=== PATIENT | male | born 1930 | race Caucasian/White ===

== ENCOUNTER 2016-10-13 19:36 | Inpatient (IN) | payer OTHER, MEDICARE ==
[2016-10-13 19:36] VITALS: BMI 20.9
[2016-10-13] MEDS ORDERED: Sodium Chloride 0.9% 500 ML IV STA (20:20)
--- NOTE | 2016-10-13 20:30 | ED PDOC ---
Arrival/HPI - General Chief Complaint: Dizziness/Lightheaded Time Seen by Provider: 10/13/16 19:47 Historian: Patient - History of Present Illness Narrative History of Present Illness (Text): 10/13/16 20:23 This 85 yo male with pmh hyperlipidemia, constipation, presents to this ED with daughter c/o diplopia, dizziness, decreased appetite, mild cms, very weak, unsteady gait x [address] Guillen prescribed patient Meclizine last month, which it did not relief symptoms. Daughter denies sob, cp , cough, trauma, recent travel, [place], or abdominal pain. 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[place]) - Psychiatric Hx Substance Use: No - Past Surgical History Past Surgical History: No Previous - Suicidal Assessment Feels Threatened In Home Enviroment: No Family/Social History - Physician Review Nursing Documentation Reviewed: Yes Family/Social History: No Known Family HX Smoking Status: Never Smoked Hx Alcohol Use: No Hx Substance Use: No Hx Substance Use Treatment: No Allergies/Home Meds Allergies/Adverse Reactions: Allergies No Known Allergies Allergy (Verified 06/07/14 14:47) Home Medications: Home Meds Medication Instructions Recorded Confirmed Atorvastatin [Lipitor] 10 mg PO DIN 10/13/16 10/13/16 Meclizine [Antivert] 25 mg PO DAILY 10/13/16 10/13/16 Ustekinumab [Stelara] 0 mg SC PRN PRN 10/13/16 10/13/16 Review of Systems - Review of Systems Constitutional: Fatigue, Weight Change. absent: Fevers, Night Sweats Eyes: Normal ENT: Normal Respiratory: Normal. absent: SOB, Cough, Sputum, Wheezing Cardiovascular: Normal. absent: Chest Pain, Palpitations Gastrointestinal: Constipation. absent: Abdominal Pain, Nausea, Vomiting Genitourinary Male: Normal Musculoskeletal: Normal Skin: Normal Neurological: Dizziness, Other (unsteady gait). absent: Speech Changes, Facial Droop Endocrine: Normal Hemo/Lymphatic: Normal Psychiatric: Normal Physical Exam Vital Signs Temp Pulse Resp BP Pulse Ox 10/13/16 21:21 74 20 151/89 H 98 10/13/16 19:52 98.8 F 92 H 20 130/79 98 Temperature: Afebrile Blood Pressure: Normal Pulse: Regular Respiratory Rate: Normal Appearance: Positive for: Well-Appearing, Non-Toxic, Comfortable Pain Distress: None - Systems Exam Head: Present: Atraumatic, Normocephalic Pupils: Present: PERRL Extroacular Muscles: Present: EOMI Conjunctiva: Present: Normal Ears: Present: Normal, NORMAL TM, Normal Canal. No: Erythema, TM Bulging, Fluid , TM Perf Mouth: Present: Moist Mucous Membranes, Normal Lips, Normal Tounge. No: Drooling Pharnyx: Present: Normal. No: ERYTHEMA, EXUDATE, TONSILS ENLARGED Nose (External): Present: Atraumatic Nose (Internal): Present: Normal Inspection Neck: Present: Normal Range of Motion, Trachea Midline. No: Meningeal Signs Respiratory/Chest: Present: Clear to Auscultation, Good Air Exchange. No: Respiratory Distress, Accessory Muscle Use, Wheezes, Rales, Retracting, Rhonchi , Tachypneic Cardiovascular: Present: Regular Rate and Rhythm, Normal S1, S2. No: Murmurs Abdomen: Present: Normal Bowel Sounds. No: Tenderness, Distention, Peritoneal Signs Back: Present: Normal Inspection. No: CVA Tenderness Upper Extremity: Present: Normal Inspection, Normal ROM, NORMAL PULSES, Neurovascularly Intact, Capillary Refill < 2s. No: Cyanosis, Edema Lower Extremity: Present: Normal Inspection, NORMAL PULSES, Normal ROM, Neurovascularly Intact, Capillary Refill < 2 s. No: Edema, CALF TENDERNESS Neurological: Present: GCS=15, CN II-XII Intact, Speech Normal, Motor Func Grossly Intact, Normal Sensory Function, Normal Cerebellar Funct. No: Gait Normal, Memory Normal Skin: Present: Warm, Dry, Normal Color. No: Rashes Psychiatric: Present: Alert Medical Decision Making ED Course and Treatment: 10/13/16 22:[address] Tsang who is covering for Dr. Guillen, regarding patient c/o generalized weakness, unsteady gait, decreased appetite, CMS. He agrees with plan for admission. 10/13/16 22:18 I spoke with patient and daughter who agreed with plan for admission. 10/13/16 22:28 CXR demonstrates subtle bibasilar atelectasis vs infiltrates. Patient's daughter denies respiratory symptoms. I favor atelectasis. I would order Rocephin till official report of CXR is available. Re-evaluation Time: 21:50 Reassessment Condition: Re-examined, Improving,but remains with symptoms - Lab Interpretations Lab Results: 10/13/16 20:45 10/13/16 20:45 Lab Results 10/13/16 20:50: Urine Color Yellow, Urine Appearance Sl cloudy, Urine pH 6.0, Ur Specific [place] 1.015, Urine Protein Negative, Urine Glucose (UA) Negative, Urine Ketones Negative, Urine Blood Small H, Urine Nitrate Negative, Urine Bilirubin Negative, Urine Urobilinogen 0.2, Ur Leukocyte Esterase Negative, Urine RBC 0 - 2, Urine WBC 0 - 2, Ur Epithelial Cells 0 - 2 10/13/16 20:45: Ammonia < 9 L 10/13/16 20:45: Sodium 139, Potassium 3.8, Chloride 104, Carbon Dioxide 26, Anion Gap 13, BUN 15, Creatinine 1.1, Est GFR ( Amer) > 60, Est GFR (Non- Af Amer) > 60, Random Glucose 99, Calcium 8.7, Phosphorus 3.2, Magnesium 1.9, Total Bilirubin 0.5, AST 30, ALT 26, Alkaline Phosphatase 63, Lactate Dehydrogenase 427, Total Creatine Kinase 50, Troponin I < 0.01, Total Protein 7.7, Albumin 3.8, Globulin 3.9, Albumin/Globulin Ratio 1.0 L 10/13/16 20:45: PT 11.1, INR 1.03, APTT 26.6 10/13/16 20:45: WBC 8.6, RBC 4.15, Hgb 13.2 L, Hct 37.2 L, MCV 89.6, MCH 31.8, MCHC 35.5, RDW 13.1, Plt Count 186, MPV 9.1, Gran % 66.0, Lymph % (Auto) 22.4, [place] % (Auto) 7.5 H, Eos % (Auto) 3.9, Baso % (Auto) 0.2, Gran # 5.69, Lymph # 1.9, [place] # 0.7 H, Eos # 0.3, Baso # 0.02 I have reviewed the lab results: Yes Interpretation: No clinic. lab abnormalty - RAD Interpretation Narrative RAD Interpretations (Text): 10/13/16 21:47 EXAM: CT Head Without Intravenous Contrast CLINICAL HISTORY: FINDINGS: Limitations: No retail area manager view. Brain: Moderate atrophy. No intracranial hemorrhage. No mass. Several scattered foci of decreased attenuation within periventricular/subcortical white matter. No definite edema. Ventricles: No hydrocephalus. Bones/joints: No acute fracture. Soft tissues: Unremarkable. Vasculature: Mild atherosclerotic disease of intracranial arteries. Few foci of air about cavernous sinus, nonspecific but possibly iatrogenic. Sinuses: No acute sinusitis. Mastoid air cells: No mastoid effusion. Orbits: Slight asymmetry in size/shape of RIGHT globe. Clinical correlation is needed. IMPRESSION: 1. Nonspecific white matter changes. Acute infarction may be CT occult within first 24 hours. If a focal deficit persists, consider followup CT or MRI for further evaluation. 2. Incidental/non-acute findings are described above. Dictated and Authenticated by: Shane Denton MD 10/13/2016 9:43 PM Eastern Time ([place] & [place]) 10/13/16 22:27 CHEST X-RAYS: subtle bibasilar atelectasis vs infiltrates Radiology Orders: 10/13/16 20:20 HEAD W/O CONTRAST [CT] Stat 10/13/16 20:21 CHEST PORTABLE [RAD] Stat - Medication Orders Current Medication Orders: Sodium Chloride (Sodium Chloride 0.9%) 1,000 mls @ 75 mls/hr IV .[id number] STA Stop: 10/14/16 11:43 Discontinued Medications Sodium Chloride (Sodium Chloride 0.9%) 500 mls @ 1,000 mls/hr IV .Q30M STA Stop: 10/13/16 20:49 Last Admin: 10/13/16 20:53 Dose: 1,000 mls/hr Ceftriaxone Sodium (Rocephin 1 Gram Ivpb) 1 gm in 100 mls @ 200 mls/hr IVPB STAT STA PRN Reason: Protocol Stop: 10/13/16 22:04 Last Admin: 10/13/16 22:12 Dose: 200 mls/hr Disposition/Present on Arrival - Present on Arrival Any Indicators Present on Arrival: No History of DVT/PE: No History of Uncontrolled Diabetes: No Urinary Catheter: No History of Decub. Ulcer: No History Surgical Site Infection Following: None - Disposition Have Diagnosis and Disposition been Completed?: Yes Diagnosis: Unsteady gait, Failure to thrive, Altered mental status Disposition: HOSPITALIZED Disposition Time: 22:18 Patient Plan: Admission Patient Problems: Current Active Problems Problem Status Onset Unsteady gait Acute Failure to thrive Acute Altered mental status Acute Condition: STABLE
[2016-10-13 20:56] LABS: BASO # 0.02 K/mm3 (0.0-2.0); BASO % 0.2 % (0.0-3.0); EOS # 0.3 (0.0-0.7); EOS % 3.9 % (1.5-5.0); GRAN # 5.69 (1.4-6.5); HEMOGLOBIN 13.2 gm/dL (14.0-18.0); LYMPH # 1.9 (1.2-3.4); LYMPH % 22.4 % (22.0-35.0); MEAN CELL VOLUME 89.6 fL (80.0-105.0); MEAN CORPUSCULAR HEMOGLOBIN 31.8 pg (25.0-35.0); MEAN CORPUSCULAR HGB CONC 35.5 g/dl (31.0-37.0); MEAN PLATELET VOLUME 9.1 fl (7.0-11.0); MONO # 0.7 (0.1-0.6); MONO % 7.5 % (1.0-6.0); PLATELET COUNT 186 10^3/uL (120.0-450.0); RBC 4.15 10^6/uL (3.5-6.1); RED CELL DISTRIBUTION WIDTH 13.1 % (11.5-14.5); WHITE BLOOD COUNT 8.6 10^3/ul (4.5-11.0)
[2016-10-13 21:04] LABS: URINE BILIRUBIN NEGATIVE (NEGATIVE); URINE BLOOD SMALL (NEGATIVE); URINE GLUCOSE (UA) NEGATIVE (NEGATIVE); URINE LEUKOCYTE ESTERASE NEGATIVE Leu/uL (NEGATIVE); URINE NITRATE NEGATIVE (NEGATIVE); URINE PROTEIN NEGATIVE mg/dL (<30 mg/dL); URINE UROBILINOGEN 0.2 E.U./dL (<1 E.U./dL)
[2016-10-13 21:07] LABS: INR 1.03 (0.93-1.08); PARTIAL THROMBOPLASTIN TIME 26.6 Seconds (23.7-30.8); PROTHROMBIN TIME 11.1 Seconds (9.9-11.8)
[2016-10-13 21:07] LABS: URINE APPEARANCE SL CLOUDY (CLEAR); URINE COLOR YELLOW (YELLOW)
[2016-10-13 21:11] LABS: URINE EPITHELIAL CELLS 0 - 2 /hpf (0-5); URINE RBC 0 - 2 /hpf (0-2); URINE WBC 0 - 2 /hpf (0-6)
[2016-10-13 21:18] LABS: ALBUMIN 3.8 g/dL (3.0-4.8); ALT/SGPT 26 U/L (7-56); AST/SGOT 30 U/L (15-59); BLOOD UREA NITROGEN 15 mg/dL (7-21); CALCIUM 8.7 mg/dL (8.4-10.5); GFR AFRICAN-AMERICAN > 60; GFR NON-AFRICAN AMERICAN > 60; MAGNESIUM 1.9 mg/dL (1.7-2.2)
[2016-10-13] MEDS ORDERED: cefTRIAXone 1 gm 1 GM/100 ML BAG IVPB STA (21:35)
[2016-10-13] MEDS ORDERED: Azithromycin 500MG/NS 250ml 500 MG/250 ML BAG IVPB STA (21:35)
[2016-10-13 21:39] LABS: TROPONIN I < 0.01 ng/mL
--- NOTE | 2016-10-13 21:43 | CT ---
EXAM: CT Head Without Intravenous Contrast CLINICAL HISTORY: 85 years old, male; Signs and symptoms; Dizziness; Additional info: Dizziness, diplopia TECHNIQUE: Axial computed tomography images of the head/brain without intravenous contrast. This CT exam was performed using one or more of the following dose reduction techniques: automated exposure control, adjustment of the mA and/or kV according to patient size, and/or use of iterative reconstruction technique. COMPARISON: No relevant prior studies available. FINDINGS: Limitations: No schedule maker view. Brain: Moderate atrophy. No intracranial hemorrhage. No mass. Several scattered foci of decreased attenuation within periventricular/subcortical white matter. No definite edema. Ventricles: No hydrocephalus. Bones/joints: No acute fracture. Soft tissues: Unremarkable. Vasculature: Mild atherosclerotic disease of intracranial arteries. Few foci of air about cavernous sinus, nonspecific but possibly iatrogenic. Sinuses: No acute sinusitis. Mastoid air cells: No mastoid effusion. Orbits: Slight asymmetry in size/shape of RIGHT globe. Clinical correlation is needed. IMPRESSION: 1. Nonspecific white matter changes. Acute infarction may be CT occult within first 24 hours. If a focal deficit persists, consider followup CT or MRI for further evaluation. 2. Incidental/non-acute findings are described above.
[2016-10-13] MEDS ORDERED: Sodium Chloride 0.9% 1,000 ML IV STA (22:24)
--- NOTE | 2016-10-14 08:45 | RAD ---
HISTORY: cough COMPARISON: No prior. FINDINGS: LUNGS: Minimal bibasilar atelectasis. The lungs are otherwise clear PLEURA: No significant pleural effusion identified, no pneumothorax apparent. CARDIOVASCULAR: Normal. OSSEOUS STRUCTURES: No significant abnormalities. VISUALIZED UPPER ABDOMEN: Normal. OTHER FINDINGS: None. IMPRESSION: No active disease.
--- NOTE | 2016-10-14 09:50 | CARD ---
APPROVED REPORT EKG Measurement Heart [id number] <Conclusion> Sinus rhythm with premature atrial complex Left bundle branch block
[2016-10-14] MEDS ORDERED: cefTRIAXone 1 gm 1 GM/100 ML BAG IVPB SCH (10:00)
--- NOTE | 2016-10-14 10:47 | CP.PCM.HP ---
History of Present Illness - History of Present Illness History of Present Illness: 85 y/o w/m w/ hx of dizzy weakness unsteady gait x 4 weeks was put on meclizine on the outpatient and did not help and here w/ worsening sx and for eval Present on Admission - Present on Admission Any Indicators Present on Admission: Yes History of DVT/PE: No History of Uncontrolled Diabetes: No Urinary Catheter: No Decubitus Ulcer Present: No Review of Systems - EENT Eyes: Change in Vision Ears: Disequilibrium, Dizziness - Musculoskeletal Musculoskeletal: Abnormal Gait, Muscle Weakness - Integumentary Additional comments: hx of psoriais - Neurological Neurological: Abnormal Gait, Abnormal Speech, Confusion, Dizziness, Weakness - Psychiatric Psychiatric: Anxiety, Change in Appetite, Confusion Past Patient History - Infectious Disease Hx of Infectious Diseases: None - Tetanus Immunizations Tetanus Immunization: Unknown - Past Social History Smoking Status: Never Smoked - NEUROLOGICAL Hx Vertigo: Yes - HEENT 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[place]) - MUSCULOSKELETAL/RHEUMATOLOGICAL Hx Falls: Yes - PSYCHIATRIC Hx Substance Use: No Meds Allergies/Adverse Reactions: Allergies Allergy/AdvReac Type Severity Reaction Status Date / Time No Known Allergies Allergy Verified 06/07/14 14:47 Physical Exam - Constitutional Appears: No Acute Distress - Head Exam Head Exam: ATRAUMATIC, NORMAL INSPECTION, NORMOCEPHALIC - Eye Exam Eye Exam: EOMI, Normal appearance Pupil Exam: NORMAL ACCOMODATION - ENT Exam ENT Exam: Mucous Membranes Moist Additional comments: tongue midline - Neck Exam Neck exam: Positive for: Normal Inspection - Respiratory Exam Respiratory Exam: Decreased Breath Sounds, Clear to Auscultation Bilateral, NORMAL BREATHING PATTERN - Cardiovascular Exam Cardiovascular Exam: REGULAR RHYTHM - GI/Abdominal Exam GI & Abdominal Exam: Normal Bowel Sounds, Soft - Extremities Exam Extremities exam: Positive for: normal inspection Additional comments: no edema = - Back Exam Back exam: NORMAL INSPECTION - Neurological Exam Neurological exam: Abnormal Gait, Alert, CN II-XII Intact - Psychiatric Exam Psychiatric exam: Flat Affect - Skin Skin Exam: Dry Results - Vital Signs Recent Vital Signs: Last Vital Signs Temp 98.4 F 10/14/16 06:00 Pulse 80 10/14/16 06:00 Resp 19 10/14/16 06:00 BP 160/96 H 10/14/16 06:00 Pulse Ox 99 10/14/16 06:00 - Labs Result Diagrams: 10/13/16 20:45 10/13/16 20:45 Assessment & Plan - Assessment and Plan (Free Text) Assessment: possible acute cva change in mentation weakness unsteady gait htn Plan: tele neuro eval bp meds pt swallow eval mri of brain labs discussed w/ family - Date & Time Date: 10/14/16 Time: 09:00
[2016-10-14 12:23] LABS: HDL CHOLESTEROL 46 mg/dL (29-60)
[2016-10-14 12:34] LABS: LDL CHOLESTEROL 39 mg/dL (0-129)
--- NOTE | 2016-10-14 13:45 | CP.PCM.CON ---
History of Present Illness - History of Present Illness History of Present Illness: NEURO CONSULT NOTE: 10/14/16 CHIEF COMPLAINT: DIZZINESS AND UNSTEADY GAIT. HPI: THIS I S A 85 YEAR OLD MAN WITH HISTORY OF HTN, HLD WHO PRESENTS WITH GRADUALLY INCREASE IN DIZZINESS IN TERMS OF LIGHTHEADEDNESS AND MILD SPINNING SENSATION OF THE ROOM WHEN ABOUT TO AMBULATE AND FEELS UNBALANCED ON HIS FEET WITH HIS GAIT OVER THE PAST FEW WEEKS. NO HEADACHES OR TRUE DOUBLE VISION. NO NYSTAGMUS SEEN ON EXAM. CT HEAD SHOWED NO ACUTE ABNORMALITY. NEURO EXAM IS NON-FOCAL IN TERMS OF WEAKNESS OR DYSMETRIA. NO PRONATOR DRIFT SEEN ON EXAM. NO COMPLAINTS OF ANY PARASTHESIAS OF THE EXTREMITIES. ROS: 14 POINT REVIEW OF SYMPTOMS IS NEGATIVE PER HPI. ALLERGIES: NONE SOCIAL HISTORY: NO ILLICIT DRUG USE, SMOKING, OR ETOH USE. FAMILY: NON CONTRIBUTORY. MEDICATIONS: REVIEWED BY NURSE'S RECONCILIATION SHEET. PAST MEDICAL HISTORY: HEADACHES PHYSICAL EXAM: VITAL SIGNS: REVIEWED BY THE CHART GENERAL EXAM: PATIENT SEEN IN BED, IN NO ACUTE DISTRESS HEENT: PERRLA, EOMI, NECK SUPPLE, NO JVD, NO ADENOPATHY CVS: S1, S2, RRR, NO MURMURS NOTED LUNGS: CLEAR TO AUSCULTATION, NO ADVENTITIOUS SOUNDS ABDOMEN: SOFT AND NONTENDER EXTREMITIES: NO CLUBBING OR CYANOSIS. PP 2+ B/L NEURO: PT IS ALERT AND ORIENTED TO PERSON, PLACE, AND YEAR. , RECALL TO 5 MINUTES 1/3, SPEECH IS FLUENT WITHOUT ERRORS, CN II-XII INTACT, MOTOR EXAM: NORMAL TONE,ATROPHY OF ALL MUSCLE GROUPS, MOVES ALL EXTREMITIES EQUALLY, NO PRONATOR DRIFT SEEN. SENSORY EXAM: LIGHT TOUCH, PIN PRICK UP TO CALVES B/L, PROPRIOCEPTION , VIBRATION ARE INTACT B/L DEEP TENDON REFLEXES: 2+ THROUGHOUT AN D1 AT THE ANKLES. COORDINATION: FINGER TO NOSE IS INTACT. HEEL TO SHAVER IS INTACT GAIT: DEFERRED FOR NOW. LABS: REVIEWED BY THE CHART. ASSESSMENT AND PLAN: THIS I S A 85 YEAR OLD MAN WITH HISTORY OF HTN, HLD WHO PRESENTS WITH GRADUALLY INCREASE IN DIZZINESS IN TERMS OF LIGHTHEADEDNESS AND MILD SPINNING SENSATION OF THE ROOM WHEN ABOUT TO AMBULATE AND FEELS UNBALANCED ON HIS FEET WITH HIS GAIT OVER THE PAST FEW WEEKS. NO HEADACHES OR TRUE DOUBLE VISION. NO NYSTAGMUS SEEN ON EXAM. CT HEAD SHOWED NO ACUTE ABNORMALITY. NEURO EXAM IS NON-FOCAL IN TERMS OF WEAKNESS OR DYSMETRIA. NO PRONATOR DRIFT SEEN ON EXAM. NO COMPLAINTS OF ANY PARASTHESIAS OF THE EXTREMITIES. IMPRESSION: DIZZINESS COULD BE PARTIALLY DUE TO NEWLY ELEVATED BP WITH VERTIGONOUS COMPONENT VS. CENTRAL. UNSTEADY GAIT IS ALSO PART OF HIM BEING MILDLY DECONDITIONED. 1. ASA 81 MG FOR STROKE PREVENTION 2. MRI BRAIN TO ASSESS FOR ANY ACUTE STROKE. 3. KEEP SBP BTW 130-140 MM HG. 4.CAROTID DOPPLER\ 5. B12 LEVEL 6. PHYSICAL THERAPY EVALUATION. THANK YOU. 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[place]) - MUSCULOSKELETAL/RHEUMATOLOGICAL Hx Falls: Yes - PSYCHIATRIC Hx Substance Use: No Meds Allergies/Adverse Reactions: Allergies Allergy/AdvReac Type Severity Reaction Status Date / Time No Known Allergies Allergy Verified 06/07/14 14:47 - Medications Medications: Current Medications Amlodipine Besylate (Norvasc) 5 mg PO DAILY [facility] Last Admin: 10/14/16 11:13 Dose: 5 mg Aspirin (Aspirin Chewable) 81 mg PO DAILY [facility] Last Admin: 10/14/16 10:35 Dose: 81 mg Atorvastatin Calcium (Lipitor) 10 mg PO DIN [facility] Ceftriaxone Sodium (Rocephin 1 Gram Ivpb) 1 gm in 100 mls @ 100 mls/hr IVPB DAILY [facility] PRN Reason: Protocol Last Admin: 10/14/16 10:35 Dose: 100 mls/hr Meclizine HCl (Antivert) 25 mg PO Q8H [facility] Last Admin: 10/14/16 13:19 Dose: 25 mg Results - Vital Signs Recent Vital Signs: Last Vital Signs Temp 98.4 F 10/14/16 06:00 Pulse 80 10/14/16 11:13 Resp 19 10/14/16 06:00 BP 160/96 H 10/14/16 11:13 Pulse Ox 99 10/14/16 06:00 - Labs Result Diagrams: 10/13/16 20:45 10/13/16 20:45 Labs: Laboratory Results - last 24 hr 10/14/16 12:00 Triglycerides 72 Cholesterol 106 L LDL Cholesterol Direct 39 HDL Cholesterol 46
--- NOTE | 2016-10-14 14:33 | MRI ---
PROCEDURE: MRI BRAIN WITHOUT CONTRAST HISTORY: cva COMPARISON: None. TECHNIQUE: The study was limited to axial diffusion-weighted imaging only. The patient refused any further scanning FINDINGS: HEMORRHAGE: None DWI: No evidence of an acute or early subacute infarction. BRAIN PARENCHYMA: No mass effect or edema. No atrophy or chronic microvascular ischemic changes. VENTRICLES: Unremarkable. No hydrocephalus. CRANIUM: Unremarkable. IMPRESSION: Study limited to axial diffusion imaging only. No evidence of acute infarct
[2016-10-15 08:05] LABS: HEMOGLOBIN 13.5 gm/dL (14.0-18.0); MEAN CELL VOLUME 89.6 fL (80.0-105.0); MEAN CORPUSCULAR HEMOGLOBIN 31.1 pg (25.0-35.0); MEAN CORPUSCULAR HGB CONC 34.7 g/dl (31.0-37.0); MEAN PLATELET VOLUME 9.5 fl (7.0-11.0); RBC 4.34 10^6/uL (3.5-6.1); WHITE BLOOD COUNT 8.7 10^3/ul (4.5-11.0)
[2016-10-15 08:07] LABS: ALBUMIN 3.7 g/dL (3.0-4.8); ALT/SGPT 23 U/L (7-56); AST/SGOT 34 U/L (15-59); BLOOD UREA NITROGEN 16 mg/dL (7-21); CALCIUM 8.8 mg/dL (8.4-10.5); GFR AFRICAN-AMERICAN > 60; GFR NON-AFRICAN AMERICAN > 60
--- NOTE | 2016-10-15 09:10 | CP.PCM.PN ---
Subjective - Date & Time of Evaluation Date of Evaluation: 10/15/16 Time of Evaluation: 08:00 - Subjective Subjective: seen in bed confused alert no acute distress eats ok no cva as per neuro Objective - Vital Signs/Intake and Output Vital Signs (last 24 hours): Temp Pulse Resp BP Pulse Ox 98.0 F 105 H 18 168/86 H 98 10/15/16 06:00 10/15/16 06:00 10/15/16 06:00 10/15/16 06:00 10/15/16 06:00 Intake and Output: 10/15/16 10/15/16 06:59 18:59 Intake Total 240 Output Total 400 Balance -160 - Medications Medications: Current Medications Amlodipine Besylate (Norvasc) 10 mg PO DAILY [facility] Aspirin (Aspirin Chewable) 81 mg PO DAILY [facility] Last Admin: 10/14/16 10:35 Dose: 81 mg Atorvastatin Calcium (Lipitor) 10 mg PO DIN [facility] Last Admin: 10/14/16 17:12 Dose: 10 mg Meclizine HCl (Antivert) 25 mg PO Q8H [facility] Last Admin: 10/15/16 04:31 Dose: Not Given - Labs Labs: 10/15/16 07:00 10/15/16 07:00 PT 11.1 Seconds (9.9-11.8) 10/13/16 20:45 INR 1.03 (0.93-1.08) 10/13/16 20:45 APTT 26.6 Seconds (23.7-30.8) 10/13/16 20:45 - Constitutional Appears: No Acute Distress - Head Exam Head Exam: ATRAUMATIC, NORMAL INSPECTION, NORMOCEPHALIC - Eye Exam Eye Exam: Normal appearance - ENT Exam ENT Exam: Mucous Membranes Moist - Respiratory Exam Respiratory Exam: Clear to Ausculation Bilateral, NORMAL BREATHING PATTERN - Cardiovascular Exam Cardiovascular Exam: REGULAR RHYTHM - GI/Abdominal Exam GI & Abdominal Exam: Soft, Normal Bowel Sounds - Extremities Exam Extremities Exam: Normal Inspection - Back Exam Back Exam: NORMAL INSPECTION - Neurological Exam Neurological Exam: Altered, CN II-XII Intact - Psychiatric Exam Psychiatric exam: Normal Affect - Skin Skin Exam: Warm Assessment and Plan - Assessment and Plan (Free Text) Assessment: confusion weakness htn new unsteady gait very high fall risk will need tcu or rebeca Plan: off iv fluids off iv abs still unsteady and confused (baseline) will need pt eval for rebeca or tcu before goes home unsteady gait high fall risk checking labs
--- NOTE | 2016-10-15 13:48 | CP.PCM.PN ---
Subjective - Date & Time of Evaluation Date of Evaluation: 10/15/16 Time of Evaluation: 12:30 - Subjective Subjective: NEURO PROGRESS NOTE: 10/15/16 CHIEF COMPLAINT: F/U DIZZINESS AND UNSTEADY GAIT. SUBJECTIVE: NEURO EXAM IS NON-FOCAL IN TERMS OF WEAKNESS OR DYSMETRIA. NO PRONATOR DRIFT SEEN ON EXAM. MRI BRAIN SHOWED NO ACUTE ABNORMALITY. MILD DELIRIUM OVERNIGHT, BUT FOLLOWS COMMANDS. ROS: 14 POINT REVIEW OF SYMPTOMS IS NEGATIVE PER HPI. ALLERGIES: NONE SOCIAL HISTORY: NO ILLICIT DRUG USE, SMOKING, OR ETOH USE. FAMILY: NON CONTRIBUTORY. MEDICATIONS: REVIEWED BY NURSE'S RECONCILIATION SHEET. PAST MEDICAL HISTORY: HEADACHES PHYSICAL EXAM: VITAL SIGNS: REVIEWED BY THE CHART GENERAL EXAM: PATIENT SEEN IN BED, IN NO ACUTE DISTRESS HEENT: PERRLA, EOMI, NECK SUPPLE, NO JVD, NO ADENOPATHY CVS: S1, S2, RRR, NO MURMURS NOTED LUNGS: CLEAR TO AUSCULTATION, NO ADVENTITIOUS SOUNDS ABDOMEN: SOFT AND NONTENDER EXTREMITIES: NO CLUBBING OR CYANOSIS. PP 2+ B/L NEURO: PT IS ALERT AND ORIENTED TO PERSON, PLACE, AND YEAR. , RECALL TO 5 MINUTES 1/3, SPEECH IS FLUENT WITHOUT ERRORS, CN II-XII INTACT, MOTOR EXAM: NORMAL TONE,ATROPHY OF ALL MUSCLE GROUPS, MOVES ALL EXTREMITIES EQUALLY, NO PRONATOR DRIFT SEEN. SENSORY EXAM: LIGHT TOUCH, PIN PRICK UP TO CALVES B/L, PROPRIOCEPTION , VIBRATION ARE INTACT B/L DEEP TENDON REFLEXES: 2+ THROUGHOUT AN D1 AT THE ANKLES. COORDINATION: FINGER TO NOSE IS INTACT. HEEL TO SHAVER IS INTACT GAIT: DEFERRED FOR NOW. LABS: REVIEWED BY THE CHART. ASSESSMENT AND PLAN: THIS I S A 85 YEAR OLD MAN WITH HISTORY OF HTN, HLD WHO PRESENTS WITH GRADUALLY INCREASE IN DIZZINESS IN TERMS OF LIGHTHEADEDNESS AND MILD SPINNING SENSATION OF THE ROOM WHEN ABOUT TO AMBULATE AND FEELS UNBALANCED ON HIS FEET WITH HIS GAIT OVER THE PAST FEW WEEKS. NO HEADACHES OR TRUE DOUBLE VISION. NO NYSTAGMUS SEEN ON EXAM. CT HEAD SHOWED NO ACUTE ABNORMALITY. NEURO EXAM IS NON-FOCAL IN TERMS OF WEAKNESS OR DYSMETRIA. NO PRONATOR DRIFT SEEN ON EXAM. NO COMPLAINTS OF ANY PARASTHESIAS OF THE EXTREMITIES. MRI BRAIN SHOWED NO ACUTE ABNORMALITY. IMPRESSION: DIZZINESS COULD BE PARTIALLY DUE TO NEWLY ELEVATED BP WITH VERTIGONOUS COMPONENT. UNSTEADY GAIT IS ALSO PART OF HIM BEING MILDLY DECONDITIONED. 1. ASA 81 MG FOR STROKE PREVENTION 2. KEEP SBP BTW 130-140 MM HG. 3.PHYSICAL THERAPY 4. DELIRIUM PRECAUTIONS. THANK YOU. Laura MODI MD Objective - Vital Signs/Intake and Output Vital Signs (last 24 hours): Temp Pulse Resp BP Pulse Ox 98.0 F 79 18 168/86 H 98 10/15/16 06:00 10/15/16 10:00 10/15/16 06:00 10/15/16 09:54 10/15/16 06:00 Intake and Output: 10/15/16 10/15/16 06:59 18:59 Intake Total 240 Output Total 400 Balance -160 - Medications Medications: Current Medications Amlodipine Besylate (Norvasc) 10 mg PO DAILY [facility] Last Admin: 10/15/16 09:54 Dose: 10 mg Aspirin (Aspirin Chewable) 81 mg PO DAILY [facility] Last Admin: 10/15/16 09:54 Dose: 81 mg Atorvastatin Calcium (Lipitor) 10 mg PO DIN [facility] Last Admin: 10/14/16 17:12 Dose: 10 mg Meclizine HCl (Antivert) 25 mg PO Q8H [facility] Last Admin: 10/15/16 04:31 Dose: Not Given - Labs Labs: 10/15/16 07:00 10/15/16 07:00 PT 11.1 Seconds (9.9-11.8) 10/13/16 20:45 INR 1.03 (0.93-1.08) 10/13/16 20:45 APTT 26.6 Seconds (23.7-30.8) 10/13/16 20:45
--- NOTE | 2016-10-15 18:48 | US ---
PROCEDURE: Bilateral carotid artery duplex ultrasound HISTORY: Carotid stenosis PHYSICIAN(S): Abhijeet Gutierrez MD. TECHNIQUE: Duplex sonography and color-flow Doppler were used to evaluate the carotid bifurcations and limited segments of the vertebral arteries bilaterally. FINDINGS: There is mild smooth heterogeneous plaque noted at the carotid bifurcations bilaterally. The peak systolic velocity in the proximal right internal carotid artery is 76 cm/sec. This corresponds to a 20 to 39% proximal right ICA stenosis. Normal systolic velocities are noted in the proximal right external carotid artery. There is antegrade flow in the right vertebral artery. The peak systolic velocity in the proximal left internal carotid artery is 64 cm/sec. This corresponds to a 20 to 39% proximal left ICA stenosis. Normal systolic velocities are noted in the proximal left external carotid artery. There is antegrade flow in the left vertebral artery. IMPRESSION: 1. Bilateral 20-39% proximal ICA stenoses. 2. Antegrade flow in both vertebral arteries.
[2016-10-16 07:24] LABS: HEMOGLOBIN 13.8 gm/dL (14.0-18.0); MEAN CELL VOLUME 89.9 fL (80.0-105.0); MEAN CORPUSCULAR HEMOGLOBIN 31.1 pg (25.0-35.0); MEAN CORPUSCULAR HGB CONC 34.6 g/dl (31.0-37.0); MEAN PLATELET VOLUME 9.5 fl (7.0-11.0); RBC 4.44 10^6/uL (3.5-6.1); RED CELL DISTRIBUTION WIDTH 13.1 % (11.5-14.5); WHITE BLOOD COUNT 9.7 10^3/ul (4.5-11.0)
--- NOTE | 2016-10-16 07:39 | CP.PCM.DIS ---
Provider - Provider Date of Admission: 10/13/16 22:20 Attending physician: Norris Guillen DO Time Spent in preparation of Discharge (in minutes): 15 Hospital Course - Lab Results Lab Results: Most Recent Lab Values WBC 9.7 10^3/ul (4.5-11.0) 10/16/16 06:40 RBC 4.44 10^6/uL (3.5-6.1) 10/16/16 06:40 Hgb 13.8 gm/dL (14.0-18.0) L 10/16/16 06:40 Hct 39.9 % (42.0-52.0) L 10/16/16 06:40 MCV 89.9 fL (80.0-105.0) 10/16/16 06:40 MCH 31.1 pg (25.0-35.0) 10/16/16 06:40 MCHC 34.6 g/dl (31.0-37.0) 10/16/16 06:40 RDW 13.1 % (11.5-14.5) 10/16/16 06:40 Plt Count 186 10^3/uL (120.0-450.0) 10/16/16 06:40 MPV 9.5 fl (7.0-11.0) 10/16/16 06:40 Gran % 66.0 % (50.0-68.0) 10/13/16 20:45 Lymph % (Auto) 22.4 % (22.0-35.0) 10/13/16 20:45 Merrick % (Auto) 7.5 % (1.0-6.0) H 10/13/16 20:45 Eos % (Auto) 3.9 % (1.5-5.0) 10/13/16 20:45 Baso % (Auto) 0.2 % (0.0-3.0) 10/13/16 20:45 Gran # 5.69 (1.4-6.5) 10/13/16 20:45 Lymph # 1.9 (1.2-3.4) 10/13/16 20:45 Merrick # 0.7 (0.1-0.6) H 10/13/16 20:45 Eos # 0.3 (0.0-0.7) 10/13/16 20:45 Baso # 0.02 K/mm3 (0.0-2.0) 10/13/16 20:45 PT 11.1 Seconds (9.9-11.8) 10/13/16 20:45 INR 1.03 (0.93-1.08) 10/13/16 20:45 APTT 26.6 Seconds (23.7-30.8) 10/13/16 20:45 Sodium 137 mmol/L (132-148) 10/15/16 07:00 Potassium 3.7 mmol/L (3.6-5.0) 10/15/16 07:00 Chloride 107 mmol/L (95-110) 10/15/16 07:00 Carbon Dioxide 20 mmol/L (21-33) L 10/15/16 07:00 Anion Gap 14 (10-20) 10/15/16 07:00 BUN 16 mg/dL (7-21) 10/15/16 07:00 Creatinine 0.8 mg/dL (0.5-1.4) 10/15/16 07:00 Est GFR ( Amer) > 60 10/15/16 07:00 Est GFR (Non-Af Amer) > 60 10/15/16 07:00 Random Glucose 99 mg/dL (70-110) 10/15/16 07:00 Calcium 8.8 mg/dL (8.4-10.5) 10/15/16 07:00 Phosphorus 3.2 mg/dL (2.5-4.5) 10/13/16 20:45 Magnesium 1.9 mg/dL (1.7-2.2) 10/13/16 20:45 Total Bilirubin 0.6 mg/dL (0.2-1.3) 10/15/16 07:00 AST 34 U/L (15-59) 10/15/16 07:00 ALT 23 U/L (7-56) 10/15/16 07:00 Alkaline Phosphatase 72 U/L (38-133) 10/15/16 07:00 Ammonia < 9 umol/L (9-33) L 10/13/16 20:45 Lactate Dehydrogenase 427 U/L (333-699) 10/13/16 20:45 Total Creatine Kinase 50 U/L (35-230) 10/13/16 20:45 Troponin I < 0.01 ng/mL 10/13/16 20:45 NT-Pro-B Natriuret Pep 183 pg/mL (0-450) 10/13/16 20:45 Total Protein 7.5 g/dL (5.8-8.3) 10/15/16 07:00 Albumin 3.7 g/dL (3.0-4.8) 10/15/16 07:00 Globulin 3.9 gm/dL 10/15/16 07:00 Albumin/Globulin Ratio 1.0 (1.1-1.8) L 10/15/16 07:00 Triglycerides 72 mg/dL (35-160) 10/14/16 12:00 Cholesterol 106 mg/dL (130-200) L 10/14/16 12:00 LDL Cholesterol Direct 39 mg/dL (0-129) 10/14/16 12:00 HDL Cholesterol 46 mg/dL (29-60) 10/14/16 12:00 Vitamin B12 632 pg/mL (239-931) 10/14/16 13:50 Urine Color Yellow (YELLOW) 10/13/16 20:50 Urine Appearance Sl cloudy (CLEAR) 10/13/16 20:50 Urine pH 6.0 (4.7-8.0) 10/13/16 20:50 Ur Specific Piffard 1.015 (1.005-1.035) 10/13/16 20:50 Urine Protein Negative mg/dL (<30 mg/dL) 10/13/16 20:50 Urine Glucose (UA) Negative mg/dL (NEGATIVE) 10/13/16 20:50 Urine Ketones Negative mg/dL (NEGATIVE) 10/13/16 20:50 Urine Blood Small (NEGATIVE) H 10/13/16 20:50 Urine Nitrate Negative (NEGATIVE) 10/13/16 20:50 Urine Bilirubin Negative (NEGATIVE) 10/13/16 20:50 Urine Urobilinogen 0.2 E.U./dL (<1 E.U./dL) 10/13/16 20:50 Ur Leukocyte Esterase Negative Sophia/uL (NEGATIVE) 10/13/16 20:50 Urine RBC 0 - 2 /hpf (0-2) 10/13/16 20:50 Urine WBC 0 - 2 /hpf (0-6) 10/13/16 20:50 Ur Epithelial Cells 0 - 2 /hpf (0-5) 10/13/16 20:50 - Hospital Course Hospital Course: came in confused and weak htn unsteady gait high fall risk no new cva needs pt before home Discharge Exam - Head Exam Head Exam: ATRAUMATIC, NORMAL INSPECTION, NORMOCEPHALIC - Eye Exam Eye Exam: Normal appearance - ENT Exam ENT Exam: Mucous Membranes Moist - Respiratory Exam Respiratory Exam: Clear to PA & Lateral - Cardiovascular Exam Cardiovascular Exam: REGULAR RHYTHM - GI/Abdominal Exam GI & Abdominal Exam: Normal Bowel Sounds, Soft - Back Exam Back exam: NORMAL INSPECTION - Neurological Exam Neurological exam: Alert, CN II-XII Intact - Skin Skin Exam: Warm - Additional Findings Additional findings: weak poor strength needs pt confused at times can be reoriented Discharge Plan - Follow Up Plan Condition: STABLE Disposition: REHAB FACILITY/REHAB UNIT Additional Instructions: to tcu for pt meds increase strngth decrease fall risk and then home w/ family
[2016-10-16 07:44] LABS: ALB/GLOB RATIO 0.9 (1.1-1.8); ALBUMIN 3.6 g/dL (3.0-4.8); ALT/SGPT 25 U/L (7-56); AST/SGOT 30 U/L (15-59); BLOOD UREA NITROGEN 22 mg/dL (7-21); CALCIUM 8.8 mg/dL (8.4-10.5); GFR AFRICAN-AMERICAN > 60; GFR NON-AFRICAN AMERICAN > 60
[2016-10-16 08:13] VITALS: BP 127/67; RESP 20; TEMP 97.9; O2SAT 97
[2016-10-16 17:11] VITALS: PULSE 87
[2016-10-20 06:16] LABS: METHYLMALONIC ACID,SERUM 169 nmol/L (87-318)
== END 2016-10-16 17:18 | disposition home or self-care (01) | DRG 464 ==
LOC: ED 19:36 → ERH 22:20 → 3RNO 23:05
PROVIDERS: ADMIT Family Medicine; ATTEND Family Medicine
DX: R53.1 Weakness (principal); I10 Essential (primary) hypertension; R26.81 Unsteadiness on feet; R62.7 Adult failure to thrive; E78.5 Hyperlipidemia, unspecified; R41.0 Disorientation, unspecified; K59.00 Constipation, unspecified; H91.90 Unspecified hearing loss, unspecified ear; Z91.81 History of falling

== ENCOUNTER 2018-03-27 13:18 | Inpatient (IN) | payer MEDICARE, OTHER ==
--- NOTE | 2018-03-27 13:39 | ED PDOC ---
Arrival/HPI - General Chief Complaint: Trauma Time Seen by Provider: 03/27/18 13:26 Historian: Family (Daughter and home health aide) EM Caveat: Dementia - History of Present Illness Time/Duration: > month Symptom Onset: Gradual Symptom Course: Worsening Severity Level: Moderate Activities at Onset: Rest Associated Symptoms (Text): 03/27/18 13:36 Daughter reports that the patient has been going downhill for the last several months. He was discharged from rehabilitation after an admission at another hospital for a fall with a head injury. Since prior to that he is been hallucinating at night. He's been seeing children that are not really there. They have a home health aide during the day, but no one to help at night. The patient's is no longer able to care for him. The daughter is looking for placement. He fell again last week with superficial trauma to the right frontal scalp. He fell again a day or 2 ago with a superficial abrasion to the left parietal scalp. He is thin and frail cachectic and chronically ill-appearing. He is unable to give any history. History is obtained from the daughter and the aide. Past Medical History - Infectious Disease Hx of Infectious Diseases: None - Tetanus Immunization Tetanus Immunization: Unknown - Past Medical History Past Medical History: No Previous - Cardiac Hx Hypertension: Yes - Pulmonary Hx Respiratory Disorders: No - Neurological HX Cerebrovascular Accident: Yes (10/23 NO DEFICITS) - HEENT 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[facility]) - Renal Hx Renal Disorder: No - Endocrine/Metabolic Hx Endocrine Disorders: No - Hematological/Oncological Hx Blood Disorders: No - Integumentary Hx Dermatological Disorder: No - Musculoskeletal/Rheumatological Hx Falls: Yes - Gastrointestinal Hx Gastrointestinal Disorders: No - Genitourinary/Gynecological Hx Genitourinary Disorders: No - Psychiatric Hx Psychophysiologic Disorder: No Hx Substance Use: No - Past Surgical History Past Surgical History: No Previous - Suicidal Assessment Feels Threatened In Home Enviroment: No Family/Social History - Physician Review Nursing Documentation Reviewed: Yes Family/Social History: Unknown Family HX Smoking Status: Never Smoked Hx Alcohol Use: No Hx Substance Use: No Hx Substance Use Treatment: No Allergies/Home Meds Allergies/Adverse Reactions: Allergies No Known Allergies Allergy (Verified 03/27/18 13:34) Home Medications: Home Meds Medication Instructions Recorded Confirmed RX: Atorvastatin [Lipitor] 20 mg PO DIN 03/27/18 03/27/18 RX: Primidone [Mysoline] 50 mg PO HS 03/27/18 03/27/18 RX: Selegiline [Eldepryl] 5 mg PO BID 03/27/18 03/27/18 RX: amLODIPine [Norvasc] 10 mg PO DAILY 03/27/18 03/27/18 Review of Systems - Review of Systems Systems not reviewed;Unavailable: Dementia Physical Exam Vital Signs Temp Pulse Resp BP Pulse Ox 03/27/18 13:30 97.7 F 90 18 137/77 100 Temperature: Afebrile Blood Pressure: Normal Pulse: Regular Respiratory Rate: Normal Appearance: Positive for: Well-Appearing, Non-Toxic, Comfortable, Cachectic, Other (chronically ill-appearring) Pain Distress: None Mental Status: Positive for: other (oriented 1 only) - Systems Exam Head: Present: Normocephalic, Abrasion. No: Tenderness, Contusion, Swelling, Ecchymosis Pupils: Present: PERRL Extroacular Muscles: Present: EOMI Conjunctiva: Present: Normal Mouth: Present: Moist Mucous Membranes Pharnyx: No: ERYTHEMA, EXUDATE, TONSILS ENLARGED Neck: Present: Normal Range of Motion. No: MIDLINE TENDERNESS, Paraspinal Tenderness Respiratory/Chest: Present: Clear to Auscultation, Good Air Exchange, Decreased Breath Sounds. No: Respiratory Distress, Accessory Muscle Use Cardiovascular: Present: Regular Rate and Rhythm, Normal S1, S2. No: Murmurs Abdomen: No: Tenderness, Distention, Peritoneal Signs, Rebound, Guarding Back: Present: Normal Inspection Upper Extremity: Present: Normal Inspection. No: Cyanosis, Edema Lower Extremity: Present: Normal Inspection. No: Edema Neurological: Present: GCS=15, CN II-XII Intact, Speech Normal, Motor Func Grossly Intact Skin: Present: Warm, Dry, Normal Color, Abrasion (as above). No: Rashes Psychiatric: Present: Alert Medical Decision Making ED Course and Treatment: Chest X-ray Signed By: Jax Izaguirre MD Date Signed: 03/27/181406 IMPRESSION: No active disease. 03/27/18 15:47 CT scan of the head as read by the radiologist shows no acute findings. 03/27/18 15:53 EKG shows normal sinus rhythm rate approximately 90 with a left bundle branch block and no acute ST or T-wave changes. 03/27/18 15:[address] Guillen who will admit for halfway placement. PROCEDURE: CT HEAD WITHOUT CONTRAST Signed By: Jax Izaguirre MD Date Signed: 03/27/181539 IMPRESSION: No acute findings. - RAD Interpretation Radiology Orders: 03/27/18 13:34 HEAD W/O CONTRAST [CT] Stat 03/27/18 13:35 CHEST PORTABLE [RAD] Stat Disposition/Present on Arrival - Present on Arrival Any Indicators Present on Arrival: No History of DVT/PE: No History of Uncontrolled Diabetes: No Urinary Catheter: No History of Decub. Ulcer: No History Surgical Site Infection Following: None - Disposition Have Diagnosis and Disposition been Completed?: Yes Diagnosis: Failure to thrive, Altered mental status, Dementia, Frequent falls, Head contusion Disposition: HOSPITALIZED Disposition Time: 15:54 Patient Plan: Admission Patient Problems: Current Active Problems Problem Status Onset Altered mental status Acute Dementia Acute Failure to thrive Acute Frequent falls Acute Head contusion Acute Condition: FAIR
--- NOTE | 2018-03-27 14:11 | RAD ---
Date of service: 03/27/2018 HISTORY: ams COMPARISON: 03/25/2017 FINDINGS: LUNGS: No active pulmonary disease. PLEURA: No significant pleural effusion identified, no pneumothorax apparent. CARDIOVASCULAR: No aortic atherosclerotic calcification present. Normal cardiac size. No pulmonary vascular congestion. OSSEOUS STRUCTURES: No significant abnormalities. VISUALIZED UPPER ABDOMEN: Normal. OTHER FINDINGS: None. IMPRESSION: No active disease.
[2018-03-27 14:14] LABS: BASO # 0.01 K/mm3 (0.0-2.0); BASO % 0.2 % (0.0-3.0); EOS # 0.3 (0.0-0.7); EOS % 4.4 % (1.5-5.0); GRAN # 2.99 (1.4-6.5); GRAN % 50.9 % (50.0-68.0); HEMOGLOBIN 13.1 g/dL (14.0-18.0); LYMPH % 34.6 % (22.0-35.0); MEAN CELL VOLUME 88.8 fl (80.0-105.0); MEAN CORPUSCULAR HEMOGLOBIN 31.1 pg (25.0-35.0); MONO # 0.6 (0.1-0.6); MONO % 9.9 % (1.0-6.0); RBC 4.21 10^6/uL (3.5-6.1); RED CELL DISTRIBUTION WIDTH 12.8 % (11.5-14.5); WHITE BLOOD COUNT 5.9 10^3/uL (4.5-11.0)
[2018-03-27 14:16] LABS: URINE BILIRUBIN NEGATIVE (NEGATIVE); URINE BLOOD TRACE-INTACT (NEGATIVE); URINE GLUCOSE (UA) NEGATIVE (NEGATIVE); URINE LEUKOCYTE ESTERASE NEGATIVE Leu/uL (NEGATIVE); URINE PROTEIN NEGATIVE mg/dL (<30 mg/dL)
[2018-03-27 14:17] LABS: URINE APPEARANCE CLEAR (CLEAR); URINE COLOR YELLOW (YELLOW)
[2018-03-27 14:27] LABS: URINE RBC 0 - 2 /hpf (0-2)
[2018-03-27 14:28] LABS: URINE BACTERIA NEG /hpf; URINE WBC NEGATIVE /hpf (0-6)
[2018-03-27 14:41] LABS: INR 1.03; PARTIAL THROMBOPLASTIN TIME 29.7 Seconds (25.1-36.5); PROTHROMBIN TIME 11.8 SECONDS (9.4-12.5)
[2018-03-27 15:06] LABS: ALT/SGPT 26 U/L (7-56); AST/SGOT 29 U/L (17-59); BLOOD UREA NITROGEN 22 mg/dL (7-21); GFR NON-AFRICAN AMERICAN > 60
[2018-03-27 15:35] LABS: TROPONIN I < 0.01 ng/mL
--- NOTE | 2018-03-27 15:44 | CT ---
Date of service: 03/27/2018 PROCEDURE: CT HEAD WITHOUT CONTRAST. HISTORY: ams COMPARISON: 03/25/2017 TECHNIQUE: Axial computed tomography images were obtained through the head/brain without intravenous contrast. Radiation dose: Total exam DLP = 1017.36 mGy-cm. This CT exam was performed using one or more of the following dose reduction techniques: Automated exposure control, adjustment of the mA and/or kV according to patient size, and/or use of iterative reconstruction technique. FINDINGS: HEMORRHAGE: No intracranial hemorrhage. BRAIN: No mass effect or edema. Mild chronic microvascular changes are seen in the periventricular white matter. There is mild atrophy. VENTRICLES: Unremarkable. No hydrocephalus. CALVARIUM: Unremarkable. PARANASAL SINUSES: Unremarkable as visualized. No significant inflammatory changes. MASTOID AIR CELLS: Unremarkable as visualized. No inflammatory changes. OTHER FINDINGS: None. IMPRESSION: No acute findings
[2018-03-27] MEDS ORDERED: SELEGILINE 5 MG PO SCH (18:00)
[2018-03-27] MEDS: Insulin Reg-MEDIUM-Coverage SC SCH (22:13)
[2018-03-27 23:46] VITALS: BMI 18.3
--- NOTE | 2018-03-28 04:59 | HP ---
DATE OF EXAM: 03/27/2018 HISTORY OF PRESENT ILLNESS: I was called to the emergency room to admit Melo. He has a history of being brought in by his daughter. He was just recently in a different rehabilitation. He came home and he fell. He has been in the hospital with head injury then he has been hallucinating. He is seeing children. It is getting too tough for the to take care of him anymore and the daughter is looking for placement. There are multiple falls. He has had scrapes and bruises on his forehead, superficial. He is alert, cachectic, chronically ill appearing, in bed in [facility]. He has hypertension, he had CVA in 10/2016, he is hard of hearing, falls, dementia, and diabetes. FAMILY HISTORY: Unknown family history. SOCIAL HISTORY: He never smoked. No drinking, no drugs. He is an 87-year-old white man. He is now having hallucinations and falls. at a minimum. ALLERGIES: NO KNOW DRUG ALLERGIES. MEDICATION: He is on Lipitor, Mysoline, Eldepryl, Norvasc for blood pressure. REVIEW OF SYSTEMS: No apparent vision or hearing changes. He has no chest pain or shortness of breath. No abdominal pain. He is weak. He has got bruises on his forehead. PHYSICAL EXAMINATION GENERAL: He is alert, a little bit toxic appearing, cachectic, thin, frail, not hungry. VITAL SIGNS: He has a 97.7 temp, 90 pulse , 18 respiratory rate , 137/77 blood pressure, and 100% O2 sat. HEENT: He has got bruises on his forehead. Normocephalic. Extraocular muscles are intact. Pupils are equal and reactive to light. Throat is moist. NECK: Supple. HEART: Regular rate. Normal S1 and S2. LUNGS: Decreased breath sounds. Poor effort. No wheezes, rhonchi, or rales. ABDOMEN: Soft and nontender. Positive bowel sounds. EXTREMITIES: He moves all 4 extremities. No edema. NEUROLOGIC: GCS is 15. Cranial nerves II through XII grossly intact. Speech is normal. He is alert at his baseline. LABORATORY DATA: He has some tests done. Chest x-ray was clean. Head CT showed nothing new. He has a 5 white count, 13.1 hemoglobin, 37.4 hematocrit with 193 platelets. He has 1.03 INR, 134 sodium, potassium 4, BUN 22, creatinine 1, GFR is greater than 60, sugar is 136, calcium is 9, phosphorus 2.3, magnesium 2.2, total bili is 0.4, AST is 29, ALT is 26, alk phos 77. Lactate dehydrogenase is 450. Total creatine kinase is 65. Troponin I is less than 0.01. Total protein is 8. Albumin is 4 and globulin is 4. Urine is trace, negative bacteria. He is here for physical therapy from falls, some reorientation, physical therapy, neuro evaluation, hopefully and possibly back home again. We will continue with aggressive treatment and care on Melo. He has got multiple falls, he is demented. Norris Guillen DO MTDD
[2018-03-28 06:47] LABS: HEMOGLOBIN 12.8 g/dL (14.0-18.0); MEAN CELL VOLUME 88.8 fl (80.0-105.0); MEAN CORPUSCULAR HEMOGLOBIN 31.1 pg (25.0-35.0); MEAN PLATELET VOLUME 8.7 fl (7.0-11.0); RBC 4.12 10^6/uL (3.5-6.1); RED CELL DISTRIBUTION WIDTH 12.8 % (11.5-14.5); WHITE BLOOD COUNT 6.1 10^3/uL (4.5-11.0)
[2018-03-28 07:06] LABS: ALBUMIN 3.8 g/dL (3.0-4.8); ALT/SGPT 20 U/L (7-56); AST/SGOT 33 U/L (17-59); BLOOD UREA NITROGEN 17 mg/dL (7-21); CALCIUM 9.1 mg/dL (8.4-10.5); GFR NON-AFRICAN AMERICAN > 60
[2018-03-28] MEDS: Insulin Reg-MEDIUM-Coverage SC SCH ×4 (08:50→21:45)
--- NOTE | 2018-03-28 09:03 | CARD ---
APPROVED REPORT Date of service: 03/27/2018 EKG Measurement Heart [id number] [id number] <Conclusion> Normal sinus rhythm Left bundle branch block No change
--- NOTE | 2018-03-28 10:12 | PN ---
DATE: 03/28/2018 SUBJECTIVE: I saw him resting comfortably in bed. He slept well. He has a one-to-one sitter. He is alert. He smiles. He is pleasantly confused. MEDICATIONS: He is on Ativan, insulin coverage, Lipitor, primidone and Norvasc. PHYSICAL EXAMINATION: VITAL SIGNS: Temperature 98.1, 99 pulse, 84 pulse, 152/77 blood pressure, 18 respiratory rate, 90% O2 sat on room air. HEAD: Atraumatic, normocephalic. Throat is dry. HEART: Regular rate. LUNGS: Decreased breath sounds. ABDOMEN: Soft. EXTREMITIES: No edema. LABORATORY DATA: He has a 6.1 white count, 12.8 hemoglobin, 36.6 hematocrit with 197 platelets. He has 135 sodium, potassium 3.8, BUN 70, creatinine 0.8, GFR greater than 60, sugar is 88, calcium is 9.1, total bili is 0.7, AST is 33, ALT is 20, alk phos 81. Troponin less than 0.01, total protein 7.6. Urine was negative. CT scan of the head showed no acute findings. Chest x-ray showed no active disease. ASSESSMENT AND PLAN: He is weak. I ordered physical therapy. He might need to go to [facility] which is discussed with family, what their plans are, called in case management to help us. We will check his labs, get him out of bed to chair if we can, need physical therapy to walk him, see what they recommend. Continue with aggressive treatment and care. Norris Guillen DO
--- NOTE | 2018-03-28 13:23 | CP.PCM.PCO ---
Physician Communication Note - Physician Communication Note Physician Communication Note: demenita with behavioral distur bance/deconditioned. aricept/thiamine/[facility]
--- NOTE | 2018-03-28 17:25 | CON ---
DATE: 03/28/2018 HISTORY OF PRESENT ILLNESS: This is an 87-year-old male, who has a past medical history of dementia brought here, because he was recently came from rehab and fell at home and also been hallucinating. The patient had multiple falls and some bruises on the head were noted and called to evaluate the patient. PAST MEDICAL HISTORY: Dementia, high cholesterol. ALLERGIES: NO KNOWN DRUG ALLERGIES. SOCIAL HISTORY: Does not smoke. Does not drink. REVIEW OF SYSTEMS: The patient is very thin and cachectic looking. PHYSICAL EXAMINATION: HEENT: Normocephalic, atraumatic. NEUROLOGIC: The patient is awake and drowsy, opens eyes on verbal command, able to follow, showed 2 fingers in response. Cranial nerves II through XII were tested. Pupils reactive. Spontaneous movement of the extremities noted, though limited. Deep tendon reflexes 1+. Plantars downgoing. Sensory appears intact. Cerebellar gait deferred. IMPRESSION: Encephalopathy superimposed on dementia, multiple falls. The patient recently came back from rehab and CAT scan of the head was done. The patient is on Mysoline, Lipitor, Norvasc. Continue present management. We will follow up. Kevin Cruz MD (Delete this signature block when dictator is a preceptor.)
[2018-03-29 06:54] LABS: HEMOGLOBIN 12.9 g/dL (14.0-18.0); MEAN CELL VOLUME 88.9 fl (80.0-105.0); MEAN CORPUSCULAR HEMOGLOBIN 30.6 pg (25.0-35.0); MEAN CORPUSCULAR HGB CONC 34.4 g/dl (31.0-37.0); MEAN PLATELET VOLUME 8.7 fl (7.0-11.0); RBC 4.22 10^6/uL (3.5-6.1); RED CELL DISTRIBUTION WIDTH 12.8 % (11.5-14.5); WHITE BLOOD COUNT 6.2 10^3/uL (4.5-11.0)
[2018-03-29 07:29] LABS: ALBUMIN 3.6 g/dL (3.0-4.8); ALT/SGPT 31 U/L (7-56); AST/SGOT 23 U/L (17-59); BLOOD UREA NITROGEN 19 mg/dL (7-21); CALCIUM 8.8 mg/dL (8.4-10.5); GFR NON-AFRICAN AMERICAN > 60
[2018-03-29] MEDS: Insulin Reg-MEDIUM-Coverage SC SCH ×4 (09:52→21:23)
--- NOTE | 2018-03-29 10:52 | PN ---
DATE: 03/29/2018 SUBJECTIVE: I saw him resting comfortably in bed. He is alert. She was talking to me. He is getting ready for eating breakfast and he tells me he is hungry. No acute distress. No chest pain or shortness breath. No abdominal pain. PHYSICAL EXAMINATION: VITAL SIGNS: Temperature 98.2, 84 pulse, 142/78 blood pressure, 20 respiratory rate, 100% O2 sat on room air. HEENT: His head is atraumatic, normocephalic. He is looking at me. He is talking little better. HEART: Regular rate. LUNGS: Clear to auscultation. ABDOMEN: Soft. EXTREMITIES: No edema. MEDICATIONS: He is currently on Aricept, Ativan, insulin, Lipitor, Mysoline, Norvasc and vitamin B1. LABORATORY DATA: He has a 6.2 white count, 12.9 hemoglobin, 37.5 hematocrit, 204 platelets. Sodium 137, potassium 4, BUN 90, creatinine 0.8, GFR greater than 60, sugar is 94. Calcium 8.8, total bili is 0.4, AST is 23, ALT is 31, alk phos 79, total protein 7.3. RECOMMENDATION: The plan is for [facility] to long-term care. He is going to do very well. He has a little bit of dementia and diabetes, falls, change in mentation, a little bit of physical therapy might help him very well. Norris Guillen DO
[2018-03-30 07:05] LABS: HEMOGLOBIN 13.8 g/dL (14.0-18.0); MEAN CELL VOLUME 88.5 fl (80.0-105.0); MEAN CORPUSCULAR HEMOGLOBIN 30.6 pg (25.0-35.0); MEAN CORPUSCULAR HGB CONC 34.6 g/dl (31.0-37.0); MEAN PLATELET VOLUME 8.7 fl (7.0-11.0); RBC 4.51 10^6/uL (3.5-6.1); RED CELL DISTRIBUTION WIDTH 12.7 % (11.5-14.5); WHITE BLOOD COUNT 6.1 10^3/uL (4.5-11.0)
[2018-03-30 07:41] LABS: ALT/SGPT 27 U/L (7-56); AST/SGOT 34 U/L (17-59); BLOOD UREA NITROGEN 18 mg/dL (7-21); CALCIUM 8.8 mg/dL (8.4-10.5); GFR NON-AFRICAN AMERICAN > 60
[2018-03-30] MEDS: Insulin Reg-MEDIUM-Coverage SC SCH ×3 (09:32→16:22)
--- NOTE | 2018-03-30 15:33 | PN ---
DATE: 03/30/2018 SUBJECTIVE: I saw Melo resting comfortably in bed this morning. He was alert and pleasantly confused, but he did eat his breakfast. He got out of bed to chair and he sat for a while and he has to go back into bed. He is on a one to one. PHYSICAL EXAMINATION: VITAL SIGNS: He has a 97.4 temperature, 83 pulse, 149/83 blood pressure, 16 respiratory rate, 96% sat on room air. GENERAL: He is alert, pleasant, confused, slow to respond, but that is his baseline. HEAD: Atraumatic, normocephalic. Throat is a little bit dry moisture than yesterday. NECK: Supple. HEART: Regular rate. LUNGS: Decreased breath sounds but clear. ABDOMEN: Soft. EXTREMITIES: No edema. MEDICATIONS: He is currently on Aricept, Ativan, insulin, Lipitor, Mysoline, Norvasc and vitamin B1. LABORATORY DATA: He has a white count of 6.1, hemoglobin 13.8, hematocrit, 39.9, platelets of 201. He has 136 sodium, potassium 3.8, BUN is 18, creatinine 0.7, GFR is greater than 60, sugar is 91. Calcium is 8.8. Total bilirubin is 0.4, AST is 34, ALT is 27, alk phos 88, total protein is 8.1 and the urine was clean. ASSESSMENT AND PLAN: He is here [facility] to long-term care possibly. He has been seen by neurology. We will continue with aggressive treatment and care and physical therapy. Recommended [facility] whenever case management and [employer] social [employer] teacher can arrange all this. Norris Guillen DO
[2018-03-31 07:13] LABS: HEMOGLOBIN 15.2 g/dL (14.0-18.0); MEAN CELL VOLUME 88.4 fl (80.0-105.0); MEAN CORPUSCULAR HEMOGLOBIN 30.9 pg (25.0-35.0); MEAN CORPUSCULAR HGB CONC 34.9 g/dl (31.0-37.0); RBC 4.92 10^6/uL (3.5-6.1); RED CELL DISTRIBUTION WIDTH 12.7 % (11.5-14.5); WHITE BLOOD COUNT 7.8 10^3/uL (4.5-11.0)
[2018-03-31 07:32] LABS: ALBUMIN 4.6 g/dL (3.0-4.8); ALT/SGPT 19 U/L (7-56); AST/SGOT 34 U/L (17-59); BLOOD UREA NITROGEN 15 mg/dL (7-21); CALCIUM 9.3 mg/dL (8.4-10.5); GFR NON-AFRICAN AMERICAN > 60
[2018-03-31] MEDS: Insulin Reg-MEDIUM-Coverage SC SCH ×4 (08:20→21:32)
--- NOTE | 2018-03-31 12:04 | PN ---
DATE: 03/31/2018 SUBJECTIVE: Melo is sitting out of the bed to chair this morning with a one-to-one. He is presently confused. He ate some breakfast not a lot. He is comfortable. He is on Aricept, Ativan, insulin, Lipitor, Mysoline, Norvasc and vitamin B1. PHYSICAL EXAMINATION: VITAL SIGNS: He has a 97.3 temperature, 94 pulse and 163/93 blood pressure. I will adjust his medications, 20 respiratory rate, 90% O2 sat on room air. HEENT: Head is atraumatic and normocephalic. He is alert, talking and pleasant. Throat is moist. NECK: Supple. HEART: Regular rate. LUNGS: Decreased breath sounds, but clear. ABDOMEN: Soft. EXTREMITIES: No edema. MEDICATIONS: He is on Aricept, Ativan, Lipitor, Mysoline, Norvasc, . I am going to add some Diovan. LABORATORY DATA: He has a 7.8 white count, 15.2 hemoglobin, 43.5 hematocrit, with 201 platelets. He has a 136 sodium, potassium 4.2, BUN 1250, creatinine 0.7, GFR is greater than 60, sugar is 103, calcium is 9.3, total bilirubin is 0.8, AST is 34, ALT is 19, alkaline phosphatase 97 and total protein is 9. He is being seen by Neurology and he saw her to long-term care. He is got one-to-one presently. He is now having some hypertension, added to his falls and change in mentation. Norris Guillen DO MTDD
[2018-03-31] MEDS ORDERED: Sodium Chloride 0.9% 500 ML IV STA (14:07)
--- NOTE | 2018-03-31 14:08 | PCM.RRT ---
<Niall Heredia - Last Filed: 04/01/18 00:08> TRAILER STEERER Nurse Assessment - Situation Date: 03/31/18 Time TRAILER STEERER was called: 13:20 TRAILER STEERER Responder Arrival Time: 13:30 TRAILER STEERER Location:: [address] [place] [address] Room Number: [id number] TRAILER STEERER Reason for Call: Change in Mental Status TRAILER STEERER Called By: RN - IV IV Inserted during TRAILER STEERER?: No - Respiratory Oxygen Delivery Method: Nasal Cannula @L/min Oxygen Flow Rate: 2 Received Nebulizer Treatments:: No Was the Patient Ventilated with Bag/Mask 100% O2?: No Secretions Suctioned?: No Was the Patient Intubated?: No Was the Patient Placed on a Ventilator?: No - Medication Medications Administered During TRAILER STEERER: Boulus 1L - Diagnostic Test Ordered EKG: Yes (NSR) Chest X-Ray: No CT Scan: No - Stat Labs Ordered TRAILER STEERER Stat Labs Ordered: CBC CPR started during TRAILER STEERER?: No - Vital Signs Vital Sign: Rapid Response Vital Sign Blood Pressure 84/67 Pulse Rate 75 Respiratory Rate 15 Temperature 98.6 F - Finger Stick Blood Glucose Finger Stick Blood Glucose: 137 - Sepsis Screen Part 1 Sepsis Screen Part 1: Hypotensive - Time TRAILER STEERER Ended Time TRAILER STEERER Ended: 14:00 - Vital Signs at end of TRAILER STEERER Vital Signs at end of TRAILER STEERER: Rapid Response End Vital Sign Blood Pressure 90/70 Pulse Rate 81 Respiratory Rate 18 Temperature 98.7 F - Recommendations Notifications: Attending Physician, Family or Designated Caregiver I.Reason for TRAILER STEERER - A) Acute Change in Patient: (Select all that apply): Staff member or family is worried about patient - Neurological Status (Select all that apply): Follows Commands, Lethargic - Respiratory Oxygen Delivery Method: Nasal Cannula @L/min Oxygen Flow Rate: 2 - Constitutional Appears: No Acute Distress, Cachectic Additional Comments: Lehtargic - Head Head Exam: ATRAUMATIC, NORMOCEPHALIC - Eyes Additional Comments: Pupil reactivity appears to be normal however there are anatomical changes in both eyes. - Respiratory Exam Respiratory Exam: Clear to Ausculation Bilateral, NORMAL BREATHING PATTERN - Cardiovascular Exam Cardiovascular Exam: RRR, +S1, +S2 - GI/Abdominal Exam GI & Abdominal Exam: Soft, Normal Bowel Sounds. absent: Tenderness - Neurological Exam Neurological Exam: absent: Alert - Extremities Exam Extremities Exam: Normal Inspection. absent: Tenderness Plan - Assessment of Findings&Treatment Plan S: TRAILER STEERER Called 1352 by patient nurse as Patient became unresponsive in chair Upon arrival patient was found in bed appearing lethargic; responding to commands; verbalizing that he feels tired; Patient chart reviewed; patient admitted for recent fall w/ negative CT Head on 03/27. O: Vitals showed patient to be hypotensive; Vital signs were otherwise wnl; POC glucose >100 On exam patient remained lethargic, No signs of respiratory distress, S1S2 RRR, no murmur appreciated; Lungs- CTABL; Abdomen soft nontender; distal pulses 2+ bilaterally EKG showed no change from admission; No signs of worsening ischemia. A/P: EKG CBC CMP Hold Norvasc Lopressor 250ml Bolus Repeat CT Head Noted that patient was recently started on norvasc + lopressor simultaneously; Etiologies of unresponsiveness included but not limited to iatrogenic hypotension vs intracranial hemorrhage <Mounika Heredia R - Last Filed: 04/02/18 20:58> TRAILER STEERER Nurse Assessment - Vital Signs Vital Sign: Rapid Response Vital Sign Blood Pressure 84/67 Pulse Rate 75 Respiratory Rate 15 Temperature 98.6 F - Vital Signs at end of TRAILER STEERER Vital Signs at end of TRAILER STEERER: Rapid Response End Vital Sign Blood Pressure 90/70 Pulse Rate 81 Respiratory Rate 18 Temperature 98.7 F Attending/Attestation - Attestation I have personally seen and examined this patient.: Yes I have fully participated in the care of the patient.: Yes I have reviewed all pertinent clinical information, including history, physical exam and plan: Yes Notes (Text): Patient seen and examined by me with resident at 1:53PM on 03/31/18. Case discussed with resident. Agree with above with following additions/corrections. Rapid response called at 1:51 PM for patient being unresponsive while sitting in a chair. At time of arrival, patient is responsive, slow to answer but is answering questions. Patient denies any lightheadedness or dizziness. No chest pain or shortness of breath. No nausea, vomiting, or abdominal pain. Patient states he feels tired. BP found to be 84/76. Other vitals reviewed. Patient started on Cozaar today. Blood work ordered to rule out infection. Patient afebrile. Patient received IV fluids with improvement in blood pressure. Primary care doctor notified. Cardiovascular: Regular rhythm. Normal S1 and S2. Pulmonary: Normal respiratory effort. No rhonchi, rales, or wheezing appre ciated. Gastrointestinal: Soft, nondistended. Nontender. Positive bowel sounds all 4 quadrants. No guarding. Musculoskeletal: Moves all extremities. Central nervous system: Awake, responding to questions.
[2018-03-31 14:25] LABS: VENOUS BLOOD GAS BASE EXCESS -2.8 mmol/L (0.0-2.0); VENOUS BLOOD GAS PO2 48 mm/Hg (30-55); VENOUS BLOOD PH 7.38 (7.32-7.43)
[2018-03-31 14:27] LABS: BASO # 0.02 K/mm3 (0.0-2.0); BASO % 0.3 % (0.0-3.0); EOS # 0.1 (0.0-0.7); EOS % 1.4 % (1.5-5.0); GRAN # 4.81 (1.4-6.5); HEMOGLOBIN 14.6 g/dL (14.0-18.0); LYMPH # 2.3 (1.2-3.4); LYMPH % 29.5 % (22.0-35.0); MEAN CELL VOLUME 89.6 fl (80.0-105.0); MEAN CORPUSCULAR HEMOGLOBIN 30.9 pg (25.0-35.0); MEAN CORPUSCULAR HGB CONC 34.5 g/dl (31.0-37.0); MEAN PLATELET VOLUME 8.8 fl (7.0-11.0); MONO # 0.4 (0.1-0.6); MONO % 5.8 % (1.0-6.0); RBC 4.72 10^6/uL (3.5-6.1); RED CELL DISTRIBUTION WIDTH 12.7 % (11.5-14.5); WHITE BLOOD COUNT 7.6 10^3/uL (4.5-11.0)
[2018-03-31] MEDS: Sodium Chloride 0.9% 250 ML IV SCH ×2 (14:32→16:43)
[2018-03-31 14:39] LABS: ALB/GLOB RATIO 1.1 (1.1-1.8); ALBUMIN 4.4 g/dL (3.0-4.8); ALT/SGPT 26 U/L (7-56); AST/SGOT 34 U/L (17-59); BLOOD UREA NITROGEN 18 mg/dL (7-21); CALCIUM 9.5 mg/dL (8.4-10.5); GFR NON-AFRICAN AMERICAN > 60
--- NOTE | 2018-03-31 14:58 | CT ---
Date of service: 03/31/2018 PROCEDURE: CT HEAD WITHOUT CONTRAST. HISTORY: Altered mental status. COMPARISON: 03/27/2018. TECHNIQUE: Axial computed tomography images were obtained through the head/brain without intravenous contrast. Supplemental Coronal and Sagittal projections created and reviewed. Radiation dose: Total exam DLP = 892.17 mGy-cm. This CT exam was performed using one or more of the following dose reduction techniques: Automated exposure control, adjustment of the mA and/or kV according to patient size, and/or use of iterative reconstruction technique. FINDINGS: HEMORRHAGE: No intracranial hemorrhage. BRAIN: No mass effect or edema. Cortical and cerebellar atrophy, periventricular small vessel disease. VENTRICLES: Unremarkable. No hydrocephalus. CALVARIUM: Unremarkable. PARANASAL SINUSES: Unremarkable as visualized. No significant inflammatory changes. MASTOID AIR CELLS: Unremarkable as visualized. No inflammatory changes. OTHER FINDINGS: None. IMPRESSION: No acute intracranial abnormalities. No significant findings to account for the clinical presentation. No significant interval change compared to the prior examination(s).
[2018-03-31] MEDS: Sodium Chloride 0.9% 1,000 ML IV SCH (15:11)
[2018-03-31 17:19] LABS: VENOUS BLOOD GAS BASE EXCESS -0.3 mmol/L (0.0-2.0); VENOUS BLOOD GAS PO2 66 mm/Hg (30-55); VENOUS BLOOD PH 7.41 (7.32-7.43)
[2018-03-31] MEDS: Meropenem IV 1 gm in NS 1 GM/50 ML BAG IVPB SCH ×2 (21:44→22:00)
[2018-03-31] MEDS: Vancomycin 1gm in NS 250ml 1 GM/250 ML BAG IVPB SCH (22:27)
--- NOTE | 2018-03-31 23:21 | CON ---
DATE: 03/31/2018 REASON FOR CONSULTATION: Unresponsiveness and abnormal EKG. The history was obtained from the patient's daughter at the bedside who witnessed the event. The patient is an 87 years old [place] male who has a deteriorating physical condition lately. The patient sustained a recent fall and head injury, but could not undergo MRI because of his constant motion according to the patient's daughter. The patient was admitted because of hallucinations. According to his daughter, he was seeing children that were not around, and today while the daughter was sitting next to her dad, both on one chair in his room, she noticed that he is having drooling nose. His eyes are closed and he became unresponsive. Rapid Response was activated. The patient was noted to be hypotensive with a blood pressure of 84/67. The patient received IV fluid challenge with subsequent recovery of the blood pressure. The patient denies any chest pain at this time. SOCIAL HISTORY: Nonsmoker. MEDICATIONS: Antivert 25 mg every 8 hours, Aricept 10 mg once a day, Ativan 0.5 mg at bedtime p.r.n., Cozaar 50 mg once a day, Lipitor 20 mg once a day, Norvasc 10 mg once a day, thiamine 100 mg once a day. REVIEW OF SYSTEMS: No reported nausea or vomiting. No reported fever or chills. PHYSICAL EXAMINATION: GENERAL: The patient is an elderly male who does not appear to be in any acute distress. VITAL SIGNS: Most recent blood pressure 90/70 with a heart rate of 81, temperature 98.6, respirations 20. HEENT: Normocephalic. CHEST: Clear. HEART: S1, S2 regular. ABDOMEN: Soft. EXTREMITIES: No edema. LABORATORIES: Today's hemoglobin and hematocrit, white count and platelet count are within normal limit. Today's SMA-7 after Rapid Response is within normal limits except for glucose 163. EKG revealed sinus rhythm with left bundle-branch block, similar to the admitting EKG. Head CT scan without contrast, no acute intracranial abnormality. ASSESSMENT: 1. Status post hypotensive episode. 2. Abnormal EKG with evidence of left bundle-branch block. 3. Altered mental status on admission. RECOMMENDATIONS: Continue current IV fluid infusion, hold current antihypertensive including Cozaar and Norvasc therapy. Fall and seizure precautions are indicated. Obtain an echocardiogram. The most recent carotid Doppler from last year was unremarkable and the brain MRI from last year was a limited study, but no evidence of acute infarct at that time. Manuel Max MD
[2018-04-01] MEDS: Meropenem IV 1 gm in NS 1 GM/50 ML BAG IVPB SCH ×3 (05:29→21:42)
[2018-04-01 06:58] LABS: ALB/GLOB RATIO 1.1 (1.1-1.8); ALBUMIN 4.3 g/dL (3.0-4.8); ALT/SGPT 21 U/L (7-56); AST/SGOT 32 U/L (17-59); BLOOD UREA NITROGEN 16 mg/dL (7-21); CALCIUM 8.9 mg/dL (8.4-10.5); GFR NON-AFRICAN AMERICAN > 60
[2018-04-01 07:01] LABS: HEMOGLOBIN 14.1 g/dL (14.0-18.0); MEAN CELL VOLUME 88.8 fl (80.0-105.0); MEAN CORPUSCULAR HEMOGLOBIN 30.5 pg (25.0-35.0); MEAN CORPUSCULAR HGB CONC 34.3 g/dl (31.0-37.0); MEAN PLATELET VOLUME 8.9 fl (7.0-11.0); RBC 4.63 10^6/uL (3.5-6.1); RED CELL DISTRIBUTION WIDTH 12.8 % (11.5-14.5); WHITE BLOOD COUNT 10.4 10^3/uL (4.5-11.0)
[2018-04-01 08:18] VITALS: RESP 20
--- NOTE | 2018-04-01 09:09 | CARD ---
APPROVED REPORT Date of service: 03/31/2018 EKG Measurement Heart [id number] <Conclusion> Normal sinus rhythm Left bundle branch block No change
--- NOTE | 2018-04-01 09:53 | PN ---
DATE: 04/01/2018 SUBJECTIVE: He is resting comfortably in bed. He is presently confused. No acute distress. OBJECTIVE: VITAL SIGNS: Temperature 97.9, 87 pulse, 127/68 blood pressure, 20 respiratory rate, 99% O2 sat on nasal cannula. HEENT: Head is atraumatic, normocephalic. He is talking slowly, but comfortable. HEART: Regular rate. LUNGS: Decreased breath sounds, but clear. ABDOMEN: Soft. EXTREMITIES: No edema. LABORATORY DATA: He has a 10.4 white count, 40.1 hemoglobin, 41.1 hematocrit with a 222 platelets. Sodium 136, potassium 3.7, BUN 16, creatinine 0.8, GFR is greater than 60, sugar is 92, calcium is 8.9, total bili is 0.8, AST is 32, ALT is 21, alk phos 93, total protein 3.1. Urine was negative. MEDICATIONS: He is on Antivert, Aricept, Ativan, Cozaar, insulin, Lipitor, Merrem, Mysoline, Norvasc, IV fluids, vancomycin, vitamin B1. ASSESSMENT AND PLAN: Awaiting for We will continue with aggressive treatment and care on Melo Sanchez, get out of bed to chair each day and physical therapy. He has dementia, diabetes, change in mentation, hypertension, and falls. Norris Guillen DO [facility]
[2018-04-01] MEDS: Vancomycin 1gm in NS 250ml 1 GM/250 ML BAG IVPB SCH ×2 (12:07→23:37)
[2018-04-01] MEDS: Insulin Reg-MEDIUM-Coverage SC SCH ×4 (12:07→21:57)
--- NOTE | 2018-04-01 12:13 | PN ---
DATE: 04/01/2018 SUBJECTIVE: The patient remains confused, but is calm in bed. PHYSICAL EXAMINATION: VITAL SIGNS: Blood pressure 127/68, heart rate is in the 80s. NECK: Negative JVD. LUNGS: Without rales. HEART: Reveal S1 and S2. EXTREMITIES: Without change. LABORATORY DATA: Hemoglobin is 14.1, white count is 10.4. BUN and creatinine are unremarkable. The troponins are negative on admission. IMPRESSION: 1. Altered mental status. 2. Abnormal echocardiogram. 3. History of hypertension. 4. History of hypercholesterolemia. PLAN: Given these findings, an echocardiogram is pending. The patient's hemodynamics is stable at this time. Abhijeet Santos MD
--- NOTE | 2018-04-01 15:00 | CARD ---
APPROVED REPORT Date of service: 04/01/2018 EXAM: Two-dimensional and M-mode echocardiogram with Doppler and color Doppler. INDICATION LBBB 2D DIMENSIONS IVSd1.4 (0.7-1.1cm)LVDd3.4 (3.9-5.9cm) PWd1.5 (0.7-1.1cm)LVDs2.5 (2.5-4.0cm) FS (%) 25.0 %LVEF (%)50.5 (>50%) M-Mode DIMENSIONS Left Atrium (MM)2.60 (2.5-4.0cm)Aortic Root3.60 (2.2-3.7cm) Aortic Cusp Exc.1.70 (1.5-2.0cm) Aortic Valve AoV Peak Eujokoyh560.0cm/Makenna Peak GR.6mmHgAI P 1/2 [id number] Mitral Valve MV E Sayqauzs44.5cm/sMV A Yokedxnn319.0cm/sE/A ratio0.6 TDI Lateral E' Peak V4.97cm/sMedial E' Peak V4.00cm/sE/Lateral E'15.4 E/Medial E'19.1 Tricuspid Valve TR Peak [id number]/sRAP [id number] Peak Gr.21mmHg [id number] LEFT VENTRICLE The left ventricle is normal size. There is mild concentric left ventricular hypertrophy. Left ventricle ejection fraction is borderline. Septal motion consistent with conduction abnormality. Transmitral Doppler flow pattern is Grade I-abnormal relaxation pattern. RIGHT VENTRICLE The right ventricle is normal size. There is normal right ventricular wall thickness. The right ventricular systolic function is normal. ATRIA The left atrium size is normal. The right atrium size is normal. AORTIC VALVE The aortic valve is not well visualized. There is mild aortic regurgitation. MITRAL VALVE The mitral valve is normal in structure. Mitral regurgitation is trace. TRICUSPID VALVE The tricuspid valve is normal in structure. There is trace tricuspid regurgitation. PULMONIC VALVE There is trace pulmonic valvular regurgitation. <Conclusion> There is mild concentric left ventricular hypertrophy. Left ventricle ejection fraction is borderline. Septal motion consistent with conduction abnormality. Transmitral Doppler flow pattern is Grade I-abnormal relaxation pattern. There is mild aortic regurgitation.
[2018-04-01] MEDS: Sodium Chloride 0.9% 1,000 ML IV SCH (18:36)
--- NOTE | 2018-04-01 22:00 | CON ---
DATE OF CONSULTATION: 04/01/2018 The patient is seen earlier today in Room 376, Bed 2. CHIEF COMPLAINT: Weakness for several days. HISTORY OF PRESENT ILLNESS: This is an 87-year-old male with past medical history significant for high cholesterol, hyperlipidemia, hypertension, deafness, Alzheimer's, cerebrovascular accident, cataracts, diabetes mellitus, admitted through the emergency room, was seen by Dr. Timoteo Sprague on 03/27/2018 after multiple falls. The patient was continued to deteriorate. The patient was discharged recently from a rehab, had a fall, head injury, had been having hallucinations and admitted again. Infectious disease consultation requested to rule out infectious causes. PAST MEDICAL HISTORY: Significant for diabetes, hypertension, cerebrovascular accident, high cholesterol, Alzheimer's, deafness and cataract. PAST SURGICAL HISTORY: Noncontributory. MEDICATIONS AT HOME: Ativan, Norvasc, Lipitor and meclizine. ALLERGIES: THE PATIENT HAS NO KNOWN ALLERGIES. REVIEW OF SYSTEMS: A 12-point review systems is performed and there has been no fevers and chills, has weakness. No abdominal pain, diarrhea or constipation. No bright red blood per rectum or melena. PHYSICAL EXAMINATION: GENERAL: The patient is in bed in no acute distress, appearing chronically ill, debilitated stage, and cachectic. VITAL SIGNS: Temperature of 98; heart rate of 80, was up to 99; respiratory rate of 20; blood pressure of 127/68. The patient's BMI is only 18. HEENT: Unremarkable. NECK: Supple. LUNGS: Decreased breath sounds. HEART: Normal S1 and S2. ABDOMEN: Soft, nontender. No organomegaly. No rebound, guarding or masses. LABORATORY EXAMINATION: White count of 10,400, hemoglobin of 14, platelets of 222,000, and coagulation is noted. Chemistries reveal a BUN of 16 and creatinine of 0.8. LFTs were normal. Urinalysis reveals negative wbc's, negative bacteria. Microbiology is pending. IMAGING: The patient had a CT scan of the head, which was negative. The patient had a chest x-ray, which is also negative. Dr. Abhijeet Santos's note is reviewed. Dr. Norris Guillen's note is reviewed. Review of orders reveals the patient's blood culture is pending, MRSA screen is pending. Urine culture and sputum cultures are pending, and procalcitonin is pending. The patient is on meropenem and vancomycin. ASSESSMENT/PLAN: This is an 87-year-old male with diabetes, hypertension, high cholesterol, hyperlipidemia, Alzheimer's, now presenting with change in mental status. We would check on the cultures and treat with vanco and meropenem currently, pending panculture results. No obvious source of infection to explain the change in mental status. We will follow closely with you. Overall, prognosis is quite poor for this cachectic end-stage patient who is 87 years old. Consider supportive care. Joel James MD
[2018-04-02] MEDS: Meropenem IV 1 gm in NS 1 GM/50 ML BAG IVPB SCH (06:18)
[2018-04-02] MEDS: Insulin Reg-MEDIUM-Coverage SC SCH ×5 (09:46→21:01)
[2018-04-02] MEDS: Vancomycin 1gm in NS 250ml 1 GM/250 ML BAG IVPB SCH (09:54)
--- NOTE | 2018-04-02 11:27 | PN ---
DATE: 04/02/2018 SUBJECTIVE: He is sitting out of bed to chair. He is trying to feed himself. He does have an appetite this morning. He is alert and pleasantly confused. He is still on a one-to-one. He is being seen by Infectious Disease and Cardiology. PHYSICAL EXAMINATION: VITAL SIGNS: Temperature 97.6, 101 pulse, 164/91 blood pressure, 20 respiratory rate, 90% O2 sat. HEENT: Head is atraumatic, normocephalic. GENERAL: He is alert and talking, confused. HEART: Regular rate. LUNGS: Decreased breath sounds but clear. ABDOMEN: Soft. EXTREMITIES: No edema. LABORATORY DATA: He has a 10.4 white count, 14.1 hemoglobin, 41.1 hematocrit with 222 platelets. He has a 136 sodium, potassium 3.7, BUN 16, creatinine 0.8, GFR is greater than 60, sugar is 95, calcium is 8.9, total bili is 0.8, AST is 32, ALT is 21, alk phos 93, total protein 8.1. Urine was clean. ASSESSMENT AND PLAN: Waiting for a subacute rehab and a long-term care issue with social workers. Continue with aggressive treatment and care on Melo Sanchez, a very nice man. I encouraged him to eat well. He has dementia, diabetes, falls, change in mentation, and hypertension. We will get his blood test again tomorrow. Norris Guillen DO
--- NOTE | 2018-04-02 13:54 | PN ---
DATE: 04/02/2018 SUBJECTIVE: The patient is in bed in no acute distress, nontoxic. The patient was seen earlier this morning in room #376. PHYSICAL EXAMINATION: VITAL SIGNS: Temperature 97.6, blood pressure 160/90, respiratory rate 20, heart rate 101. HEENT: Examination of HEENT is unremarkable. NECK: Supple. LUNGS: Decreased breath sounds. HEART: Normal S1, S2. ABDOMEN: Soft. LABORATORY DATA: White count 10,000, hemoglobin 14, platelets 222. Chemistries reveals BUN 16, creatinine 0.8. Procalcitonin of 0.05. On review of orders, the patient is on meropenem and IV vancomycin. Negative urinalysis, negative procalcitonin, negative blood cultures, negative methicillin-resistant Staphylococcus aureus screen and urine cultures with multiple organisms consistent with a contamination. Dr. Norris Guillen is note is reviewed. ASSESSMENT AND PLAN: This is an 87-year-old male with high cholesterol, hyperlipidemia, hypertension, deafness, Alzheimer's, cerebrovascular accident, cataracts, diabetes, admitted after a fall and change in mental status. Currently with no evidence of infection. Negative blood cultures. Negative urinalysis. Negative methicillin-resistant Staphylococcus aureus screen. Negative chest x-ray. Normal white count, afebrile, normal procalcitonin. We will discontinue the antibiotics, today is day #3. We will follow the patient off antibiotics. The patient is at risk for developing nosocomial infections Joel James MD
[2018-04-03 06:20] LABS: HEMOGLOBIN 13.9 g/dL (14.0-18.0); MEAN CELL VOLUME 89.1 fl (80.0-105.0); MEAN CORPUSCULAR HGB CONC 34.8 g/dl (31.0-37.0); MEAN PLATELET VOLUME 8.8 fl (7.0-11.0); RBC 4.49 10^6/uL (3.5-6.1); RED CELL DISTRIBUTION WIDTH 12.7 % (11.5-14.5); WHITE BLOOD COUNT 7.4 10^3/uL (4.5-11.0)
[2018-04-03 06:54] LABS: ALBUMIN 3.7 g/dL (3.0-4.8); ALT/SGPT 26 U/L (7-56); AST/SGOT 29 U/L (17-59); BLOOD UREA NITROGEN 15 mg/dL (7-21); CALCIUM 8.8 mg/dL (8.4-10.5); GFR NON-AFRICAN AMERICAN > 60
[2018-04-03] MEDS: Insulin Reg-MEDIUM-Coverage SC SCH ×4 (08:00→21:27)
--- NOTE | 2018-04-03 11:16 | PN ---
DATE: 04/03/2018 SUBJECTIVE: I saw him resting comfortably in bed. He slept fairly well. He is not on a one to one this morning, he is on He seems very comfortable in bed. He is talking to me slowly and quietly, but he is talking to me. No apparent distress. He is looking forward to breakfast. He is on Antivert, Aricept, Ativan, Cozaar, insulin, Lipitor, Mysoline, Norvasc, IV fluids and vitamin B1. PHYSICAL EXAMINATION: VITAL SIGNS: He has a 98.3 temperature, 98 pulse, 142/75 blood pressure, 20 respiratory rate and 99% O2 sat on 2 liters. HEENT: His head is atraumatic and normocephalic. Throat is dry. HEART: Regular rate. LUNGS: Decreased breath sounds but clear. ABDOMEN: Soft. EXTREMITIES: No edema. LABORATORY DATA: He has a 7.4 white count, 13.9 hemoglobin, 40 hematocrit with 198 platelets. He has a 138 sodium, potassium 3.8, BUN is 15, creatinine 0.7, GFR is greater than 60, sugar is 85, calcium is 8.8, total bili is 0.5, AST is 29, ALT is 26, alk phos and total protein 7.5. He is being seen by Infectious Disease and Cardiology. He had change in mental status, he is currently stable. He is off antibiotics right now, waiting for case management and community mental health social worker to help us with the discharge plan. He should go to recommended. Norris Guillen DO [facility]
--- NOTE | 2018-04-03 13:08 | CP.PCM.PN ---
Subjective - Date & Time of Evaluation Date of Evaluation: 04/03/18 Time of Evaluation: 09:55 - Subjective Subjective: Afebrile, not in distress. Objective - Vital Signs/Intake and Output Vital Signs (last 24 hours): Temp Pulse Resp BP Pulse Ox 97.9 F 93 H 20 157/85 H 97 04/03/18 08:37 04/03/18 10:00 04/03/18 08:37 04/03/18 09:33 04/03/18 08:37 Intake and Output: 04/03/18 04/03/18 06:59 18:59 Intake Total 480 Balance 480 - Medications Medications: Current Medications Amlodipine Besylate (Norvasc) 10 mg PO DAILY [facility] Last Admin: 04/03/18 09:33 Dose: 10 mg Atorvastatin Calcium (Lipitor) 20 mg PO DIN [facility] Last Admin: 04/02/18 17:16 Dose: 20 mg Donepezil HCl (Aricept) 10 mg PO HS [facility] Last Admin: 04/02/18 21:01 Dose: 10 mg Home Med (Home Med) 1 unit PO 0800,1200 [facility] Last Admin: 04/03/18 09:34 Dose: 1 unit Sodium Chloride (Sodium Chloride 0.9%) 1,000 mls @ 40 mls/hr IV .Q24H [facility] Last Admin: 04/01/18 18:36 Dose: 40 mls/hr Insulin Human Regular (Humulin R Med) 0 units SC ACHS [facility]; Protocol Last Admin: 04/03/18 12:47 Dose: Not Given Lorazepam (Ativan) 0.5 mg PO HS PRN; Protocol PRN Reason: Anxiety Last Admin: 03/28/18 16:53 Dose: 0.5 mg Losartan Potassium (Cozaar) 50 mg PO DAILY [facility] Last Admin: 04/03/18 09:34 Dose: 50 mg Meclizine HCl (Antivert) 25 mg PO Q8 [facility] Last Admin: 04/03/18 05:56 Dose: 25 mg Primidone (Mysoline) 50 mg PO HS [facility] Last Admin: 04/02/18 21:01 Dose: 50 mg Thiamine HCl (Vitamin B1 Tab) 100 mg PO DAILY [facility] Last Admin: 04/03/18 09:35 Dose: 100 mg - Labs Labs: 04/03/18 06:00 04/03/18 06:00 PT 11.8 SECONDS (9.4-12.5) 03/27/18 14:10 INR 1.03 03/27/18 14:10 APTT 29.7 Seconds (25.1-36.5) 03/27/18 14:10 - Constitutional Appears: Chronically Ill - Head Exam Head Exam: NORMAL INSPECTION - Respiratory Exam Respiratory Exam: Decreased Breath Sounds - Cardiovascular Exam Cardiovascular Exam: +S1, +S2 - GI/Abdominal Exam GI & Abdominal Exam: Soft. absent: Tenderness Assessment and Plan - Assessment and Plan (Free Text) Plan: Assessment S/P SIRS without evidence of sepsis or bacterial infections dyslipidemia HTN dementia CVA DM cataracts Plan continue to monitor off antibiotics since he is at risk for nosocomial infections
--- NOTE | 2018-04-03 15:39 | PN ---
DATE: 04/03/2018 CARDIOLOGY FOLLOWUP SUBJECTIVE: The patient is in bed. No shortness of breath. No chest pain. PHYSICAL EXAMINATION: VITAL SIGNS: Blood pressure 157/85 and heart rates in the 90s. NECK: Negative JVD. LUNGS: Without rales. HEART: S1 and S2. EXTREMITIES: Without edema. LABORATORY DATA: Hemoglobin is 13.9 and white count is normal. BUN and creatinine are unremarkable. IMPRESSION: 1. Altered mental status. 2. History of hypertension. 3. Hypercholesterolemia. 4. Abnormal EKG. Echocardiogram reveals an ejection fraction of 50% with mild . Given these findings, the patient's cardiac status is stable. We will discontinue telemetry today. The patient is scheduled for discharge in the morning. Abhijeet Santos MD
[2018-04-04] MEDS: Sodium Chloride 0.9% 1,000 ML IV SCH (05:49)
[2018-04-04 06:22] LABS: HEMOGLOBIN 14.2 g/dL (14.0-18.0); MEAN CELL VOLUME 88.1 fl (80.0-105.0); MEAN CORPUSCULAR HEMOGLOBIN 30.7 pg (25.0-35.0); MEAN CORPUSCULAR HGB CONC 34.9 g/dl (31.0-37.0); MEAN PLATELET VOLUME 8.8 fl (7.0-11.0); RBC 4.62 10^6/uL (3.5-6.1); RED CELL DISTRIBUTION WIDTH 12.7 % (11.5-14.5); WHITE BLOOD COUNT 7.3 10^3/uL (4.5-11.0)
[2018-04-04 07:44] LABS: ALT/SGPT 27 U/L (7-56); AST/SGOT 33 U/L (17-59); BLOOD UREA NITROGEN 17 mg/dL (7-21); CALCIUM 9.2 mg/dL (8.4-10.5); GFR NON-AFRICAN AMERICAN > 60
[2018-04-04] MEDS: Insulin Reg-MEDIUM-Coverage SC SCH (07:54)
[2018-04-04 08:48] VITALS: PULSE 93; TEMP 98.5; O2SAT 98
[2018-04-04 09:27] VITALS: BP 137/72
--- NOTE | 2018-04-04 09:40 | PN ---
DATE: 04/04/2018 SUBJECTIVE: I had spoken to the daughter yesterday, she does not want him to go now to [facility], she wants him to go to home. There is a change in her thought process, but when she dropped him off to the emergency room few days ago. He is on Antivert, Aricept, Ativan, Cozaar, Lipitor, Mysoline, Norvasc and vitamins were stopped, IV fluids. PHYSICAL EXAMINATION: VITAL SIGNS: A 97.8 temperature , 83 pulse, 136/77 blood pressure, 20 respiratory rate and 99% O2 sat on room air. HEENT: Head is atraumatic and normocephalic. HEART: Regular rate. LUNGS: Decreased breath sounds, but clear. ABDOMEN: Soft. EXTREMITIES: No edema. He is weak, needs physical therapy while in physical therapy at the house. LABORATORY DATA: He has 7.3 white count, 14.2 hemoglobin, 48.7 hematocrit and 215 platelets. Sodium 135, potassium 3.6, BUN 17, creatinine 0.8, GFR is greater than 60, sugar is 92, calcium 9.2, total bilirubin 0.6, AST is 33, ALT is 27, alk phos 86 and total protein 7.9. is negative. He is being seen by Infectious Disease and Cardiology. He had status post SIRS, high cholesterol, hypertension, dementia, cerebrovascular accident, diabetes, cataracts, wants him home. We will discharge him home today, outpatient physical therapy at home, we will do house call at the house. He had altered mental status. This is how good he is going to get mentally, he might get stronger with physical therapy. The daughter understands all this, she wants to take him home. Norris Guillen DO MTDD
--- NOTE | 2018-04-04 13:13 | CP.PCM.PN ---
Subjective - Date & Time of Evaluation Date of Evaluation: 04/04/18 Time of Evaluation: 08:00 - Subjective Subjective: Comfortable, afebrile. Objective - Vital Signs/Intake and Output Vital Signs (last 24 hours): Temp Pulse Resp BP Pulse Ox 97.9 F 93 H 20 157/85 H 97 04/03/18 08:37 04/03/18 10:00 04/03/18 08:37 04/03/18 09:33 04/03/18 08:37 Intake and Output: 04/03/18 04/03/18 06:59 18:59 Intake Total 480 Balance 480 - Medications Medications: Current Medications Amlodipine Besylate (Norvasc) 10 mg PO DAILY [facility] Last Admin: 04/03/18 09:33 Dose: 10 mg Atorvastatin Calcium (Lipitor) 20 mg PO DIN [facility] Last Admin: 04/02/18 17:16 Dose: 20 mg Donepezil HCl (Aricept) 10 mg PO HS [facility] Last Admin: 04/02/18 21:01 Dose: 10 mg Home Med (Home Med) 1 unit PO 0800,1200 [facility] Last Admin: 04/03/18 09:34 Dose: 1 unit Sodium Chloride (Sodium Chloride 0.9%) 1,000 mls @ 40 mls/hr IV .Q24H [facility] Last Admin: 04/01/18 18:36 Dose: 40 mls/hr Insulin Human Regular (Humulin R Med) 0 units SC ACHS [facility]; Protocol Last Admin: 04/03/18 12:47 Dose: Not Given Lorazepam (Ativan) 0.5 mg PO HS PRN; Protocol PRN Reason: Anxiety Last Admin: 03/28/18 16:53 Dose: 0.5 mg Losartan Potassium (Cozaar) 50 mg PO DAILY [facility] Last Admin: 04/03/18 09:34 Dose: 50 mg Meclizine HCl (Antivert) 25 mg PO Q8 [facility] Last Admin: 04/03/18 05:56 Dose: 25 mg Primidone (Mysoline) 50 mg PO HS [facility] Last Admin: 04/02/18 21:01 Dose: 50 mg Thiamine HCl (Vitamin B1 Tab) 100 mg PO DAILY [facility] Last Admin: 04/03/18 09:35 Dose: 100 mg - Labs Labs: 04/03/18 06:00 04/03/18 06:00 PT 11.8 SECONDS (9.4-12.5) 03/27/18 14:10 INR 1.03 03/27/18 14:10 APTT 29.7 Seconds (25.1-36.5) 03/27/18 14:10 - Constitutional Appears: Chronically Ill - Head Exam Head Exam: NORMAL INSPECTION - Respiratory Exam Respiratory Exam: Decreased Breath Sounds - Cardiovascular Exam Cardiovascular Exam: +S1, +S2 - GI/Abdominal Exam GI & Abdominal Exam: Soft. absent: Tenderness Assessment and Plan - Assessment and Plan (Free Text) Plan: Assessment S/P SIRS without evidence of sepsis or bacterial infections dyslipidemia HTN dementia CVA DM cataracts Plan continue to monitor off antibiotics since he is at risk for infections discussed with Dr. Guillen - patient to be discharged today
== END 2018-04-04 10:53 | disposition home health service (06) | DRG 57 ==
LOC: ED 13:18 → ERH 15:54 → 3RSO 21:24
PROVIDERS: ADMIT Family Medicine; ATTEND Family Medicine
DX: G30.9 Alzheimer's disease, unspecified (principal); Z68.1 Body mass index [BMI] 19.9 or less, adult; R64 Cachexia; F02.80 Dementia in other diseases classified elsewhere, unspecified severity, without behavioral disturbance, psychotic disturbance, mood disturbance, and anxiety; E11.36 Type 2 diabetes mellitus with diabetic cataract; R62.7 Adult failure to thrive; E78.00 Pure hypercholesterolemia, unspecified; I10 Essential (primary) hypertension; H91.90 Unspecified hearing loss, unspecified ear; R29.6 Repeated falls; S00.93XA Contusion of unspecified part of head, initial encounter; W19.XXXA Unspecified fall, initial encounter; Y92.009 Unspecified place in unspecified non-institutional (private) residence as the place of occurrence of the external cause; Z86.73 Personal history of transient ischemic attack (TIA), and cerebral infarction without residual deficits

== ENCOUNTER 2018-05-08 11:29 | Emergency (ER) | payer MEDICARE, OTHER ==
[2018-05-08 11:41] VITALS: RESP 18; TEMP 97.6; BMI 23.3
--- NOTE | 2018-05-08 13:23 | ED PDOC ---
Arrival/HPI - General Chief Complaint: Altered Mental Status Time Seen by Provider: 05/08/18 11:55 Historian: Family - History of Present Illness Narrative History of Present Illness (Text): 05/08/18 12:59 87yo male with pmhx Alzheimer, Dementia, Parkinson's who was bib by the son in- law with 2days history of insomnia, hallucination. States patient has been trying to walk around, even though his wheel chair bound and fell 3times. Notes that pt is compliant with all his medications. Denies vomiting, diarrhea, chest pain, focal somatic complaint. Pt is a poor historian, aphasic. Past Medical History - Provider Review Nursing Documentation Reviewed: Yes - Infectious Disease Hx of Infectious Diseases: None - Tetanus Immunization Tetanus Immunization: Unknown - Past Medical History Past Medical History: No Previous - Cardiac Hx Cardiac Disorders: Yes Hx Hypertension: Yes - Pulmonary Hx Respiratory Disorders: No - Neurological Hx Neurological Disorder: Yes Hx Alzheimer's Disease: Yes Hx Dementia: Yes Hx Parkinson's Disease: Yes - HEENT Hx HEENT Disorder: Yes 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[place]) - Renal Hx Renal Disorder: No - Endocrine/Metabolic Hx Endocrine Disorders: Yes Hx Diabetes Mellitus Type 2: Yes - Hematological/Oncological Hx Blood Disorders: No - Integumentary Hx Dermatological Disorder: No - Musculoskeletal/Rheumatological Hx Musculoskeletal Disorders: Yes Hx Falls: Yes (Last fall 03/26/18) Hx Unsteady Gait: Yes - Gastrointestinal Hx Gastrointestinal Disorders: No - Genitourinary/Gynecological Hx Genitourinary Disorders: No - Psychiatric Hx Psychophysiologic Disorder: No Hx Substance Use: No - Past Surgical History Past Surgical History: No Previous - Suicidal Assessment Feels Threatened In Home Enviroment: No Family/Social History - Physician Review Nursing Documentation Reviewed: Yes Family/Social History: Unknown Family HX Smoking Status: Unknown If Ever Smoked Hx Alcohol Use: No Hx Substance Use: No Hx Substance Use Treatment: No Allergies/Home Meds Allergies/Adverse Reactions: Allergies No Known Allergies Allergy (Verified 05/08/18 11:41) Home Medications: Home Meds Medication Instructions Recorded Confirmed LORazepam [Ativan] 1 tab PO PRN PRN 03/27/18 03/27/18 RX: Atorvastatin [Lipitor] 20 mg PO DIN 03/27/18 03/27/18 RX: Primidone [Mysoline] 50 mg PO HS 03/27/18 03/27/18 RX: Selegiline [Eldepryl] 5 mg PO BID 03/27/18 03/27/18 RX: amLODIPine [Norvasc] 10 mg PO DAILY 03/27/18 03/27/18 Review of Systems - Physician Review All systems were reviewed & negative as marked: Yes - Review of Systems Constitutional: Normal Eyes: Normal ENT: Normal Respiratory: Normal Cardiovascular: Normal Gastrointestinal: Normal Genitourinary Male: Normal Musculoskeletal: Normal Skin: Normal Neurological: Normal Endocrine: Normal Hemo/Lymphatic: Normal Psychiatric: Other (Hallucination) Physical Exam Vital Signs Reviewed: Yes Vital Signs Temp Pulse Resp BP Pulse Ox 05/08/18 11:40 97.6 F 87 18 119/68 99 Temperature: Afebrile Blood Pressure: Normal Pulse: Regular Respiratory Rate: Normal Appearance: Positive for: Well-Appearing, Non-Toxic, Comfortable, Other (Aphasic) Pain Distress: None Mental Status: No: Alert and Oriented X 3 (x2) - Systems Exam Head: Present: Atraumatic, Normocephalic Pupils: Present: PERRL Extroacular Muscles: Present: EOMI Conjunctiva: Present: Normal Mouth: Present: Moist Mucous Membranes Neck: Present: Normal Range of Motion Respiratory/Chest: Present: Clear to Auscultation, Good Air Exchange. No: Respiratory Distress, Accessory Muscle Use, Wheezes, Decreased Breath Sounds, Rales, Retracting, Rhonchi Cardiovascular: Present: Regular Rate and Rhythm, Normal S1, S2. No: Murmurs Abdomen: No: Tenderness, Distention, Peritoneal Signs Back: Present: Normal Inspection Upper Extremity: Present: Normal Inspection. No: Cyanosis, Edema Lower Extremity: Present: Normal Inspection. No: Edema Neurological: Present: GCS=15, CN II-XII Intact, Speech Normal Skin: Present: Warm, Dry, Normal Color. No: Rashes Psychiatric: Present: Alert. No: Oriented x 3 (2) Medical Decision Making ED Course and Treatment: 05/08/18 19:45 87yo male bib the son - inlaw for stated history. Labs EKG Chest xray Labs was all unremarkable EKG NSR @ 88bpm. LBBB. N-stemi. chest xray IMPRESSION: Potential acute superimposed on chronic bibasilar interstitial pulmonary disease. No alveolitis, pleural effusion or pneumothorax bilaterally. No pulmonary vascular congestion apparent. Pt was stable for discharge. Case was DW Dr. Guillen and recommends discharge and he will do house call and arrage for outpt physical therapy. All result and plan was DW the son-law - RAD Interpretation Radiology Orders: 05/08/18 12:19 CHEST PORTABLE [RAD] Stat Disposition/Present on Arrival - Present on Arrival Any Indicators Present on Arrival: No History of DVT/PE: No History of Uncontrolled Diabetes: No Urinary Catheter: No History of Decub. Ulcer: No History Surgical Site Infection Following: None - Disposition Have Diagnosis and Disposition been Completed?: Yes Diagnosis: Dementia Disposition: HOME/ ROUTINE Disposition Time: 14:55 Patient Plan: Discharge Condition: STABLE Discharge Instructions (ExitCare): Dementia (Including Alzheimer Disease) Additional Instructions: Follow up with your doctor Return to emergency department for any new symptoms Referrals: Norris Guillen, [Family Provider] - Follow up with primary Forms: [employer] ([place])
[2018-05-08 13:28] LABS: BASO # 0.01 K/mm3 (0.0-2.0); BASO % 0.1 % (0.0-3.0); EOS # 0.3 (0.0-0.7); EOS % 4.4 % (1.5-5.0); HEMOGLOBIN 13.2 g/dL (14.0-18.0); LYMPH # 1.9 (1.2-3.4); LYMPH % 27.8 % (22.0-35.0); MEAN CELL VOLUME 88.8 fl (80.0-105.0); MEAN CORPUSCULAR HEMOGLOBIN 30.8 pg (25.0-35.0); MEAN CORPUSCULAR HGB CONC 34.6 g/dl (31.0-37.0); MEAN PLATELET VOLUME 9.1 fl (7.0-11.0); MONO # 0.7 (0.1-0.6); MONO % 10.6 % (1.0-6.0); RBC 4.29 10^6/uL (3.5-6.1); RED CELL DISTRIBUTION WIDTH 13.5 % (11.5-14.5); URINE BILIRUBIN NEGATIVE (NEGATIVE); URINE BLOOD TRACE-INTACT (NEGATIVE); URINE GLUCOSE (UA) NEGATIVE (NEGATIVE); URINE LEUKOCYTE ESTERASE NEGATIVE Leu/uL (NEGATIVE); URINE PROTEIN NEGATIVE mg/dL (<30 mg/dL); URINE UROBILINOGEN 0.2 E.U./dL (<1 E.U./dL); WHITE BLOOD COUNT 6.8 10^3/uL (4.5-11.0)
[2018-05-08 13:32] LABS: URINE APPEARANCE CLEAR (CLEAR); URINE COLOR YELLOW (YELLOW)
[2018-05-08 13:33] LABS: INR 1.04; PROTHROMBIN TIME 11.8 SECONDS (9.4-12.5)
[2018-05-08 13:37] LABS: URINE EPITHELIAL CELLS 0 - 2 /hpf (0-5); URINE RBC 0 - 2 /hpf (0-2)
[2018-05-08 13:38] LABS: ALB/GLOB RATIO 1.1 (1.1-1.8); ALBUMIN 4.2 g/dL (3.0-4.8); BLOOD UREA NITROGEN 18 mg/dL (7-21); CALCIUM 9.4 mg/dL (8.4-10.5); GFR NON-AFRICAN AMERICAN > 60
[2018-05-08 13:43] LABS: ALT/SGPT 26 U/L (7-56); AST/SGOT 33 U/L (17-59)
[2018-05-08 13:49] LABS: TROPONIN I < 0.01 ng/mL
--- NOTE | 2018-05-08 15:15 | RAD ---
Date of service: 05/08/2018 HISTORY: admission COMPARISON: Portable chest 03/27/2018. FINDINGS: LUNGS: Reticular markings appears slightly increased at the bilateral bases potentially reflecting interval acute superimposed on chronic interstitial pulmonary disease. No definite alveolar disease appreciable. PLEURA: No significant pleural effusion identified, no pneumothorax apparent. CARDIOVASCULAR: No aortic atherosclerotic calcification present. Normal cardiac size. No pulmonary vascular congestion. OSSEOUS STRUCTURES: No significant abnormalities. VISUALIZED UPPER ABDOMEN: Normal. OTHER FINDINGS: None. IMPRESSION: Potential acute superimposed on chronic bibasilar interstitial pulmonary disease. No alveolitis, pleural effusion or pneumothorax bilaterally. No pulmonary vascular congestion apparent.
[2018-05-08 16:26] VITALS: BP 131/72; PULSE 80; O2SAT 99
--- NOTE | 2018-05-08 17:54 | CARD ---
APPROVED REPORT Date of service: 05/08/2018 EKG Measurement Heart [id number] <Conclusion> Normal sinus rhythm Left bundle branch block Abnormal ECG
== END 2018-05-08 15:00 | disposition home or self-care (01) ==
LOC: ED 11:29
DX: F02.80 Dementia in other diseases classified elsewhere, unspecified severity, without behavioral disturbance, psychotic disturbance, mood disturbance, and anxiety (principal); G30.9 Alzheimer's disease, unspecified; I10 Essential (primary) hypertension; E11.9 Type 2 diabetes mellitus without complications; G20 Parkinson's disease
CPT/HCPCS: 71045; 80053; 81001; 82550; 83615; 83735; 84100; 84484; 85025; 85610; 85730; 87040; 93005; 99284; G0480

== ENCOUNTER 2018-05-23 15:12 | Observation (INO) | payer MEDICARE, OTHER ==
[2018-05-23 15:19] VITALS: BMI 18.8
--- NOTE | 2018-05-23 15:55 | ED PDOC ---
Arrival/HPI - General Chief Complaint: Shortness Of Breath Time Seen by Provider: 05/23/18 15:24 Historian: Family (son) - History of Present Illness Narrative History of Present Illness (Text): 05/23/18 15:24 Melo Sanchez is an 87 year old male, with past medical history of Alzheimer's, Parkinson's, and dementia, who presents to the emergency department with complaints of fever and shortness of breath since last night. Patient's family states that he has not been around any sick elderly. Patient's family informs use of nebulizer. Patient's family informs they are in the process of admitting patient to a alf. Patient's family denies chills, headache, dizziness, dyspnea on exertion, abdominal pain, nausea, vomiting, diarrhea, back pain, neck pain, or any other complaint. Time/Duration: 24 hours Symptom Onset: Gradual Symptom Course: Worsening Activities at Onset: Light Context: Home Past Medical History - Provider Review Nursing Documentation Reviewed: Yes - Infectious Disease Hx of Infectious Diseases: None - Tetanus Immunization Tetanus Immunization: Unknown - Past Medical History Past Medical History: No Previous - Cardiac Hx Cardiac Disorders: Yes Hx Hypertension: Yes - Pulmonary Hx Respiratory Disorders: No - Neurological Hx Neurological Disorder: Yes Hx Alzheimer's Disease: Yes Hx Dementia: Yes Hx Parkinson's Disease: Yes - HEENT Hx HEENT Disorder: Yes 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[place]) - Renal Hx Renal Disorder: No - Endocrine/Metabolic Hx Endocrine Disorders: Yes Hx Diabetes Mellitus Type 2: Yes - Hematological/Oncological Hx Blood Disorders: No - Integumentary Hx Dermatological Disorder: No - Musculoskeletal/Rheumatological Hx Musculoskeletal Disorders: Yes Hx Falls: Yes (Last fall 03/26/18) Hx Unsteady Gait: Yes - Gastrointestinal Hx Gastrointestinal Disorders: No - Genitourinary/Gynecological Hx Genitourinary Disorders: No - Psychiatric Hx Psychophysiologic Disorder: No Hx Substance Use: No - Past Surgical History Past Surgical History: No Previous - Suicidal Assessment Feels Threatened In Home Enviroment: No Family/Social History - Physician Review Nursing Documentation Reviewed: Yes Family/Social History: Unknown Family HX Smoking Status: Unknown If Ever Smoked Hx Alcohol Use: No Hx Substance Use: No Hx Substance Use Treatment: No Allergies/Home Meds Allergies/Adverse Reactions: Allergies No Known Allergies Allergy (Verified 05/23/18 15:19) Home Medications: Home Meds Medication Instructions Recorded Confirmed Atorvastatin [Lipitor] 20 mg PO DIN 03/27/18 05/23/18 LORazepam [Ativan] 1 tab PO BID PRN 03/27/18 05/23/18 Primidone [Mysoline] 50 mg PO HS 03/27/18 05/23/18 Selegiline [Eldepryl] 5 mg PO BID 03/27/18 05/23/18 amLODIPine [Norvasc] 10 mg PO DAILY 03/27/18 05/23/18 Meclizine [Meclizine*] 25 mg PO DAILY PRN 05/23/18 05/23/18 Tamsulosin [Flomax] 1 cap PO DAILY 05/23/18 05/23/18 Review of Systems - Physician Review All systems were reviewed & negative as marked: Yes - Review of Systems Constitutional: Fevers Respiratory: SOB, Cough, Wheezing Cardiovascular: absent: [place] Gastrointestinal: absent: Abdominal Pain, Diarrhea, Nausea Musculoskeletal: absent: Back Pain, Neck Pain Neurological: absent: Headache, Dizziness Physical Exam - Physical Exam Narrative Physical Exam (Text): 05/23/18 15:24 General: Cachectic appearing Vital Signs Reviewed: Yes Temperature: Afebrile Blood Pressure: Normal Pulse: Regular Respiratory Rate: Normal Appearance: Positive for: Well-Appearing, Non-Toxic, Comfortable Pain Distress: None Mental Status: Positive for: Alert and Oriented X 3 - Systems Exam Head: Present: Atraumatic, Normocephalic Pupils: Present: PERRL Extroacular Muscles: Present: EOMI Conjunctiva: Present: Normal Mouth: No: Moist Mucous Membranes (Dry mucous membranes) Neck: Present: Normal Range of Motion Respiratory/Chest: Present: Decreased Breath Sounds (bilaterally). No: Respiratory Distress, Accessory Muscle Use Cardiovascular: Present: Regular Rate and Rhythm, Murmurs (systolic ejection murmur), Normal S1, S2 Abdomen: No: Tenderness, Distention, Peritoneal Signs Back: Present: Normal Inspection Upper Extremity: Present: Normal Inspection. No: Cyanosis, Edema Lower Extremity: Present: Normal Inspection. No: Edema (no pitting edema bilaterally) Neurological: Present: GCS=15, Speech Normal Skin: Present: Warm, Dry, Normal Color. No: Rashes Psychiatric: Present: Alert, Oriented x 3, Normal Insight, Normal Concentration Medical Decision Making ED Course and Treatment: 05/23/18 15:24 Impression: 87 year old male brought to the emergency department by family with complaints of fever and shortness of breath. Differential Diagnosis included but are not limited to: --Failure to thrive --Headache Plan: -- Labs -- EKG -- Chest X-Ray -- Rectal Temp -- Influenza A/B -- Legionella Urine -- Reassess and disposition Prior Visits: Notes and results from previous visits were reviewed. Patient was last seen in the emergency department on Progress Notes: 05/23/18 16:44 Labs reviewed with patient noted to have no leukocytosis. Spoke to Dr. Guillen(PCP) who requests if son is open to placing feeding tube into patient for nutritional purposes. Patient's son asked and is agreeable to feeding tube and would like to discuss with his . Updated plan communncated to Dr. Guillen who requests Dr. Brown(GI) for consult. - Lab Interpretations Lab Results: 05/23/18 16:05 05/23/18 16:05 Lab Results 05/23/18 16:07: pO2 36, VBG pH 7.46 H, VBG pCO2 37.0 L, VBG HCO3 26.3, VBG Total CO2 27.4, VBG O2 Sat (Calc) 81.1 H, VBG Base Excess 2.5 H, VBG Potassium 4.0, Glucose 114 H, Lactate 1.0, FiO2 21.0, Sodium 132.0, Chloride 100.0, Venous Blood Potassium 4.0 05/23/18 16:05: Sodium 132, Potassium 4.1, Chloride 99, Carbon Dioxide 25, Anion Gap 12, BUN 14, Creatinine 1.0, Est GFR ( Amer) > 60, Est GFR (Non-Af Amer) > 60, Random Glucose 115 H, Calcium 8.9, Total Bilirubin 0.4, AST 32, ALT 20, Alkaline Phosphatase 116, Troponin I < 0.01, NT-Pro-B Natriuret Pep 185, Total Protein 8.2, Albumin 4.0, Globulin 4.2, Albumin/Globulin Ratio 1.0 L 05/23/18 16:05: WBC 7.1, RBC 4.32, Hgb 13.1 L, Hct 37.5 L, MCV 86.8, MCH 30.3, MCHC 34.9, RDW 12.7, Plt Count 220, MPV 8.9, Neut % (Auto) 61.2, Lymph % (Auto) 24.6, Ness % (Auto) 9.0 H, Eos % (Auto) 5.1 H, Baso % (Auto) 0.1, Lymph # (Auto) 1.7, Ness # (Auto) 0.6, Eos # (Auto) 0.4, Baso # (Auto) 0.01, Absolute Neuts (auto) 4.33 I have reviewed the lab results: Yes - RAD Interpretation Radiology Orders: 05/23/18 15:44 CHEST PORTABLE [RAD] Stat - Medication Orders Current Medication Orders: 05/23/18 16:51 Sodium Chloride (Sodium Chloride 0.9%) 1,000 mls @ 999 mls/hr IV .Q1H1M STA Stop: 05/23/18 17:25 Last Admin: 05/23/18 16:35 Dose: 999 mls/hr eMAR Start Stop Document 05/23/18 16:35 BB (Rec: [facility]23/18 16:[id number] Intravenous Solution Start Date 05/23/18 Start Time 16:35 Discontinued Medications Acetaminophen (Tylenol 325mg Tab) 650 mg PO STAT STA Stop: 05/23/18 16:26 Last Admin: 05/23/18 16:33 Dose: 650 mg MAR Pain/Vitals Document 05/23/18 16:33 BB (Rec: 05/23/18 16:34 BB [id number]) Pain Reassessment Is This A Pain ReAssessment? No Sleep Is patient sleeping during reassessment? No Presence of Pain Presence of Pain Yes Location Pain Location Body Recapper Description Constant Intensity 6 Scale Used Numeric Pain Behavior Moaning Crying Metoclopramide HCl (Reglan) 10 mg IVP STAT STA Stop: 05/23/18 16:27 Last Admin: 05/23/18 16:33 Dose: 10 mg IVP Administration Document 05/23/18 16:33 BB (Rec: 05/23/18 16:33 BB [id number]) Charges for Administration # of IVP Administrations 1 - Scribe Statement The provider has reviewed the documentation as recorded by the Scribe Cosmo Kimble All medical record entries made by the Scribe were at my direction and personally dictated by me. I have reviewed the chart and agree that the record accurately reflects my personal performance of the history, physical exam, [facility] decision making, and the department course for this patient. I have also personally directed, reviewed, and agree with the discharge instructions and disposition. Disposition/Present on Arrival - Present on Arrival Any Indicators Present on Arrival: No History of DVT/PE: No History of Uncontrolled Diabetes: No Urinary Catheter: No History of Decub. Ulcer: No History Surgical Site Infection Following: None - Disposition Have Diagnosis and Disposition been Completed?: Yes Diagnosis: Failure to thrive Disposition Time: 16:51 Patient Plan: Admission Condition: FAIR Discharge Instructions (ExitCare): Failure to Thrive, Adult (DC) Forms: [employer] (Urdu)
[2018-05-23 16:15] LABS: VENOUS BLOOD GAS BASE EXCESS 2.5 mmol/L (0.0-2.0); VENOUS BLOOD GAS PO2 36 mm/Hg (30-55); VENOUS BLOOD PH 7.46 (7.32-7.43)
[2018-05-23] MEDS ORDERED: Sodium Chloride 0.9% 1,000 ML IV STA (16:25)
[2018-05-23 16:36] LABS: BASO # 0.01 K/mm3 (0.0-2.0); BASO % 0.1 % (0.0-3.0); EOS # 0.4 (0.0-0.7); EOS % 5.1 % (1.5-5.0); HEMOGLOBIN 13.1 g/dL (14.0-18.0); LYMPH # 1.7 (1.2-3.4); LYMPH % 24.6 % (22.0-35.0); MEAN CELL VOLUME 86.8 fl (80.0-105.0); MEAN CORPUSCULAR HEMOGLOBIN 30.3 pg (25.0-35.0); MEAN CORPUSCULAR HGB CONC 34.9 g/dl (31.0-37.0); MEAN PLATELET VOLUME 8.9 fl (7.0-11.0); MONO # 0.6 (0.1-0.6); RBC 4.32 10^6/uL (3.5-6.1); RED CELL DISTRIBUTION WIDTH 12.7 % (11.5-14.5); WHITE BLOOD COUNT 7.1 10^3/uL (4.5-11.0)
--- NOTE | 2018-05-23 16:37 | RAD ---
Date of service: 05/23/2018 HISTORY: sob COMPARISON: Portable chest 05/08/2018. FINDINGS: LUNGS: No interval change in bilateral interstitial pulmonary disease some more prominent at the bases and apices. PLEURA: No significant pleural effusion identified, no pneumothorax apparent. CARDIOVASCULAR: No aortic atherosclerotic calcification present. Normal cardiac size. No pulmonary vascular congestion. OSSEOUS STRUCTURES: No significant abnormalities. VISUALIZED UPPER ABDOMEN: Normal. OTHER FINDINGS: None. IMPRESSION: Bilateral interstitial infiltrates not significantly changed in the interval. No pulmonary vascular congestion consolidation or pleural effusion appreciable.
[2018-05-23 16:45] LABS: ALT/SGPT 20 U/L (7-56); AST/SGOT 32 U/L (17-59); BLOOD UREA NITROGEN 14 mg/dL (7-21); CALCIUM 8.9 mg/dL (8.4-10.5); GFR NON-AFRICAN AMERICAN > 60
[2018-05-23 16:49] LABS: B-TYPE NATRIURETIC PEPTIDE 185 pg/mL (0-450); TROPONIN I < 0.01 ng/mL
[2018-05-23] MEDS ORDERED: Azithromycin 500MG/NS 250ml 500 MG/250 ML BAG IVPB SCH (17:45)
--- NOTE | 2018-05-23 20:49 | HP ---
DATE OF EXAM: 05/23/2018 HISTORY OF PRESENT ILLNESS: He is an 87-year-old white male who I know, who has a history of Alzheimer's, Parkinson's and dementia. He comes in just not eating well, not eating at all, failing the family is very upset. They want to put a feeding tube in him and put him at [place] to subacute rehab. He just stopped eating. He is very lethargic, doing the whole septic workup on him. PAST MEDICAL HISTORY: History of hypertension, dementia, Alzheimer's, Parkinson's disease, hard of hearing, diabetes, he has falls, and gait disturbance. FAMILY HISTORY: Unknown. SOCIAL HISTORY: No smoking, no drinking and no drugs. ALLERGIES: NO KNOWN DRUG ALLERGIES. MEDICATIONS: On Lipitor, Ativan, Mysoline, Eldepryl, Norvasc, meclizine, and Flomax. REVIEW OF SYSTEMS: No acute vision or hearing changes, he is old, he is hard of hearing. He does have shortness breath, cough and wheezing. No abdominal pain. No dyspnea on exertion. No back pain or neck pain. No headache or dizziness. Does have shortness of breath and cough and wheezing now. PHYSICAL EXAMINATION: VITAL SIGNS: Temperature 98.3, pulse 86, blood pressure 152/83, respiratory rate 18, and O2 sat 97%. GENERAL: He is alert, talking little sluggish, well appearing, alert and oriented. HEENT: Head is atraumatic and normocephalic. Pupils equal and reactive to light and accommodation. Extraocular muscles are intact. Throat is moist. NECK: Supple. Thyroid midline. No palpable appreciable lymphadenopathy. HEART: Regular rate. He has got heart murmur, 2/6 systolic ejection murmur. LUNGS: Decreased breath sounds bilaterally, occasional wheeze and congestion. ABDOMEN: Soft and nontender. Positive bowel sounds. EXTREMITIES: No edema. NEUROLOGIC: GCS is 15. Cranial nerves II through XII grossly intact. SKIN: Warm and dry. No apparent ulcers appreciated. LABORATORY DATA: He had blood tests done, negative for the flu. Sodium 132, potassium 4.1, BUN 14, creatinine 1, GFR is greater than 60, sugar is 115, calcium 8.9, total bili is 0.4. AST is 32, ALT is 20, and alk phos 116. Troponin I is less than 0.01. BNP is 185, total protein is 8.2, albumin is 4.2. Lactate is 1. He has a white count 7.1, hemoglobin 13.1, hematocrit 37.5 and platelets 220. He did have a chest x-ray that shows bilateral interstitial infiltrates. IMPRESSION AND PLAN: He will be on Rocephin and he will be on Zithromax. Pulmonary consult and Neurology consult for change in mental status. Dr. Brown from for possible PEG tube swallow evaluation. Go back on his regular medications. I believe family is hoping for 3 overnights and to go to [facility] that is a good plan for him. He will get physical therapy involved in out of bed to chair and that is my plan. Bilateral pneumonia. He might need a feeding tube. Norris Guillen DO
[2018-05-23] MEDS: Sodium Chloride 0.45% 1,000 ML IV SCH (20:52)
[2018-05-23] MEDS: cefTRIAXone 1 gm 1 GM/100 ML BAG IVPB SCH (20:53)
[2018-05-23] MEDS: SELEGILINE 5 MG PO SCH (20:53)
[2018-05-24] MEDS ORDERED: Albuterol-Ipratrop 3 mg / 0.5 (3 ml) UD IH PRN (06:57)
[2018-05-24 07:06] LABS: HEMOGLOBIN 12.8 g/dL (14.0-18.0); MEAN CELL VOLUME 86.2 fl (80.0-105.0); MEAN CORPUSCULAR HGB CONC 34.8 g/dl (31.0-37.0); MEAN PLATELET VOLUME 8.6 fl (7.0-11.0); RBC 4.27 10^6/uL (3.5-6.1); RED CELL DISTRIBUTION WIDTH 12.8 % (11.5-14.5); WHITE BLOOD COUNT 6.1 10^3/uL (4.5-11.0)
--- NOTE | 2018-05-24 07:25 | CARD ---
APPROVED REPORT Date of service: 05/23/2018 EKG Measurement Heart [id number] <Conclusion> Normal sinus rhythm Left bundle branch block Abnormal ECG
[2018-05-24] MEDS: Albuterol-Ipratrop 3 mg / 0.5 (3 ml) UD IH SCH ×3 (07:37→19:25)
[2018-05-24 07:45] LABS: ALB/GLOB RATIO 0.9 (1.1-1.8); ALBUMIN 3.7 g/dL (3.0-4.8); ALT/SGPT 13 U/L (7-56); AST/SGOT 31 U/L (17-59); BLOOD UREA NITROGEN 9 mg/dL (7-21); CALCIUM 8.4 mg/dL (8.4-10.5); GFR NON-AFRICAN AMERICAN > 60
--- NOTE | 2018-05-24 07:54 | CP.PCM.CON ---
<Keesha Heredia - Last Filed: 05/24/18 08:09> History of Present Illness - History of Present Illness History of Present Illness: PGY5 GI Consult Melo Sanchez is a 87M w/ hx of alziemer's, HTN, HL who presents to the ER for complaints of fever and shortness of breath since last night.. Pt has dementia therefore could not obatin a full history. As per chart, pt has had declining PO intake and family was concerned. He was noted to be increasing lethargic and weak. PT was bought into the ER for further evaluation and possible TIMBO placement. Pt was seen in the AM, no overnight events. PMHx: Parkinson's, Alzeihmers, BPH, HTN PSHx: could not obtain Family hx: no GI malignancies reported Social hx: No smoking, ETOH, or illicit drugs reported ROS: could not conduct 2/2 AMS END hx: unknown Past Patient History - Infectious Disease Hx of Infectious Diseases: None - Tetanus Immunizations Tetanus Immunization: Unknown - Past Social History Smoking Status: Former Smoker - CARDIAC Hx Cardiac Disorders: Yes Hx Hypertension: Yes - PULMONARY Hx Respiratory Disorders: No Hx Asthma: Yes - NEUROLOGICAL Hx Neurological Disorder: Yes Hx Alzheimer's Disease: Yes Hx Dementia: Yes Hx Parkinson's Disease: Yes - HEENT Hx HEENT Problems: Yes 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[place]) - RENAL Hx Chronic Kidney Disease: No - ENDOCRINE/METABOLIC Hx Endocrine Disorders: Yes Hx Diabetes Mellitus Type 2: Yes - HEMATOLOGICAL/ONCOLOGICAL Hx Blood Disorders: No - INTEGUMENTARY Hx Dermatological Problems: No - MUSCULOSKELETAL/RHEUMATOLOGICAL Hx Musculoskeletal Disorders: Yes Hx Falls: Yes Hx Unsteady Gait: Yes - GASTROINTESTINAL Hx Gastrointestinal Disorders: No HX Swallowing Problems: Yes Other/Comment: Low appetite. - GENITOURINARY/GYNECOLOGICAL Hx Genitourinary Disorders: No - PSYCHIATRIC Hx Psychophysiologic Disorder: No - SURGICAL HISTORY Hx Surgeries: No Meds Allergies/Adverse Reactions: Allergies Allergy/AdvReac Type Severity Reaction Status Date / Time No Known Allergies Allergy Verified 05/23/18 15:19 - Medications Medications: Current Medications Albuterol/Ipratropium (Duoneb 3 Mg/0.5 Mg (3 Ml) Ud) 3 ml IH [id number] [facility] Last Admin: 05/24/18 07:37 Dose: 3 ml Albuterol/Ipratropium (Duoneb 3 Mg/0.5 Mg (3 Ml) Ud) 3 ml IH Q2H PRN PRN Reason: Shortness of Breath Amlodipine Besylate (Norvasc) 10 mg PO DAILY [facility] Atorvastatin Calcium (Lipitor) 20 mg PO DIN [facility] Sodium Chloride (Sodium Chloride 0.45%) 1,000 mls @ 60 mls/hr IV .[id number] [facility] Last Admin: 05/23/18 20:52 Dose: 60 mls/hr Ceftriaxone Sodium (Rocephin 1 Gram Ivpb) 1 gm in 100 mls @ 100 mls/hr IVPB DAILY [facility]; Protocol Last Admin: 05/23/18 20:53 Dose: 100 mls/hr Azithromycin (Zithromax 500mg In Ns) 500 mg in 250 mls @ 167 mls/hr IVPB DAILY [facility]; Protocol Lorazepam (Ativan) 1 mg PO BID PRN; Protocol PRN Reason: Sleep Last Admin: 05/23/18 22:31 Dose: 1 mg Selegiline [Eldepryl (] 5 Mg (Home Med)) 5 mg PO BID [facility] Last Admin: 05/23/18 20:53 Dose: 5 mg Primidone (Mysoline) 50 mg PO HS [facility] Last Admin: 05/23/18 22:23 Dose: 50 mg Tamsulosin HCl (Flomax) 0.4 mg PO DAILY [facility] Physical Exam - Constitutional Appears: No Acute Distress, Chronically Ill - Head Exam Head Exam: ATRAUMATIC, NORMOCEPHALIC - Eye Exam Eye Exam: Normal appearance - ENT Exam ENT Exam: Mucous Membranes Moist, Normal Exam - Neck Exam Neck exam: Positive for: Normal Inspection - Respiratory Exam Respiratory Exam: Clear to Auscultation Bilateral, NORMAL BREATHING PATTERN. absent: Rales, Rhonchi, Wheezes, Respiratory Distress - Cardiovascular Exam Cardiovascular Exam: REGULAR RHYTHM, +S1, +S2 - GI/Abdominal Exam GI & Abdominal Exam: Normal Bowel Sounds, Soft. absent: Distended, Firm, Guarding, Hernia, Organomegaly, Rebound, Rigid - Extremities Exam Extremities exam: Negative for: joint swelling, pedal edema - Back Exam Back exam: NORMAL INSPECTION - Neurological Exam Neurological exam: Altered - Psychiatric Exam Additional comments: could not assess 2/2 mental status - Skin Skin Exam: Dry, Intact, Normal Color, Warm Results - Vital Signs Recent Vital Signs: Last Vital Signs Temp 98.3 F 05/23/18 16:11 Pulse 91 H 05/23/18 21:01 Resp 18 05/24/18 00:06 BP 164/90 H 05/23/18 22:23 Pulse Ox 98 05/23/18 21:01 - Labs Result Diagrams: 05/24/18 06:45 05/24/18 06:45 Labs: Laboratory Results - last 24 hr 05/23/18 05/23/18 05/23/18 16:05 16:05 16:07 WBC 7.1 RBC 4.32 Hgb 13.1 L Hct 37.5 L MCV 86.8 MCH 30.3 MCHC 34.9 RDW 12.7 Plt Count 220 MPV 8.9 Neut % (Auto) 61.2 Lymph % (Auto) 24.6 Iron % (Auto) 9.0 H Eos % (Auto) 5.1 H Baso % (Auto) 0.1 Lymph # (Auto) 1.7 Iron # (Auto) 0.6 Eos # (Auto) 0.4 Baso # (Auto) 0.01 Absolute Neuts (auto) 4.33 pO2 36 VBG pH 7.46 H VBG pCO2 37.0 L VBG HCO3 26.3 VBG Total CO2 27.4 VBG O2 Sat (Calc) 81.1 H VBG Base Excess 2.5 H VBG Potassium 4.0 Glucose 114 H Lactate 1.0 FiO2 21.0 Sodium 132 132.0 Potassium 4.1 Chloride 99 100.0 Carbon Dioxide 25 Anion Gap 12 BUN 14 Creatinine 1.0 Est GFR ( Amer) > 60 Est GFR (Non-Af Amer) > 60 Random Glucose 115 H Calcium 8.9 Total Bilirubin 0.4 AST 32 ALT 20 Alkaline Phosphatase 116 Troponin I < 0.01 NT-Pro-B Natriuret Pep 185 Total Protein 8.2 Albumin 4.0 Globulin 4.2 Albumin/Globulin Ratio 1.0 L Venous Blood Potassium 4.0 Influenza Typ A,B (EIA) Ur L.pneumophila Ag 05/23/18 05/23/18 05/24/18 16:48 16:52 06:45 WBC 6.1 RBC 4.27 Hgb 12.8 L Hct 36.8 L MCV 86.2 MCH 30.0 MCHC 34.8 RDW 12.8 Plt Count 218 MPV 8.6 Neut % (Auto) Lymph % (Auto) Iron % (Auto) Eos % (Auto) Baso % (Auto) Lymph # (Auto) Iron # (Auto) Eos # (Auto) Baso # (Auto) Absolute Neuts (auto) pO2 VBG pH VBG pCO2 VBG HCO3 VBG Total CO2 VBG O2 Sat (Calc) VBG Base Excess VBG Potassium Glucose Lactate FiO2 Sodium Potassium Chloride Carbon Dioxide Anion Gap BUN Creatinine Est GFR ( Amer) Est GFR (Non-Af Amer) Random Glucose Calcium Total Bilirubin AST ALT Alkaline Phosphatase Troponin I NT-Pro-B Natriuret Pep Total Protein Albumin Globulin Albumin/Globulin Ratio Venous Blood Potassium Influenza Typ A,B (EIA) Negative for flu a/b Ur L.pneumophila Ag Negative 05/24/18 06:45 WBC RBC Hgb Hct MCV MCH MCHC RDW Plt Count MPV Neut % (Auto) Lymph % (Auto) Iron % (Auto) Eos % (Auto) Baso % (Auto) Lymph # (Auto) Iron # (Auto) Eos # (Auto) Baso # (Auto) Absolute Neuts (auto) pO2 VBG pH VBG pCO2 VBG HCO3 VBG Total CO2 VBG O2 Sat (Calc) VBG Base Excess VBG Potassium Glucose Lactate FiO2 Sodium 133 Potassium 3.5 L Chloride 101 Carbon Dioxide 23 Anion Gap 13 BUN 9 Creatinine 0.6 L Est GFR ( Amer) > 60 Est GFR (Non-Af Amer) > 60 Random Glucose 96 Calcium 8.4 Total Bilirubin 0.5 AST 31 ALT 13 Alkaline Phosphatase 114 Troponin I NT-Pro-B Natriuret Pep Total Protein 7.9 Albumin 3.7 Globulin 4.2 Albumin/Globulin Ratio 0.9 L Venous Blood Potassium Influenza Typ A,B (EIA) Ur L.pneumophila Ag Assessment & Plan - Assessment and Plan (Free Text) Assessment: Melo Landis is a 87M w/ hx of parkinsons Alzheimer, BPH who presented for SOB, fever, failure to thrive Failure to thrive Lethargic Parkinson's Alzheimer's dementia Plan: -will need to speak with family in terms of goals of care -overnight RN reported that family were not considering feeding tube at this time since the pt was able to swallow at home -formal swallow eval pending -recommend calorie count -1:1 feeding -aspiration precautions -diet as per recommendation fro speech -will reach out to PCP D/W Dr. Brown <Nick Brown Y - Last Filed: 05/24/18 13:39> Meds - Medications Medications: Current Medications Albuterol/Ipratropium (Duoneb 3 Mg/0.5 Mg (3 Ml) Ud) 3 ml IH [id number] [facility] Last Admin: 05/24/18 13:04 Dose: 3 ml Albuterol/Ipratropium (Duoneb 3 Mg/0.5 Mg (3 Ml) Ud) 3 ml IH Q2H PRN PRN Reason: Shortness of Breath Amlodipine Besylate (Norvasc) 10 mg PO DAILY [facility] Last Admin: 05/24/18 11:01 Dose: 10 mg Atorvastatin Calcium (Lipitor) 20 mg PO DIN [facility] Sodium Chloride (Sodium Chloride 0.45%) 1,000 mls @ 60 mls/hr IV .[id number] [facility] Last Admin: 05/23/18 20:52 Dose: 60 mls/hr Ceftriaxone Sodium (Rocephin 1 Gram Ivpb) 1 gm in 100 mls @ 100 mls/hr IVPB DAILY [facility]; Protocol Last Admin: 05/24/18 13:14 Dose: 100 mls/hr Azithromycin (Zithromax 500mg In Ns) 500 mg in 250 mls @ 167 mls/hr IVPB DAILY [facility]; Protocol Lorazepam (Ativan) 1 mg PO BID PRN; Protocol PRN Reason: Sleep Last Admin: 05/23/18 22:31 Dose: 1 mg Selegiline [Eldepryl (] 5 Mg (Home Med)) 5 mg PO BID [facility] Last Admin: 05/23/18 20:53 Dose: 5 mg Primidone (Mysoline) 50 mg PO HS [facility] Last Admin: 05/23/18 22:23 Dose: 50 mg Tamsulosin HCl (Flomax) 0.4 mg PO DAILY [facility] Last Admin: 05/24/18 10:23 Dose: 0.4 mg Results - Vital Signs Recent Vital Signs: Last Vital Signs Temp 97.6 F 05/24/18 06:00 Pulse 101 H 05/24/18 06:00 Resp 19 05/24/18 06:00 BP 147/84 05/24/18 11:01 Pulse Ox 100 05/24/18 06:00 - Labs Result Diagrams: 05/24/18 06:45 05/24/18 06:45 Labs: Laboratory Results - last 24 hr 05/23/18 05/23/18 05/23/18 16:05 16:05 16:07 WBC 7.1 RBC 4.32 Hgb 13.1 L Hct 37.5 L MCV 86.8 MCH 30.3 MCHC 34.9 RDW 12.7 Plt Count 220 MPV 8.9 Neut % (Auto) 61.2 Lymph % (Auto) 24.6 Iron % (Auto) 9.0 H Eos % (Auto) 5.1 H Baso % (Auto) 0.1 Lymph # (Auto) 1.7 Iron # (Auto) 0.6 Eos # (Auto) 0.4 Baso # (Auto) 0.01 Absolute Neuts (auto) 4.33 PT INR APTT pO2 36 VBG pH 7.46 H VBG pCO2 37.0 L VBG HCO3 26.3 VBG Total CO2 27.4 VBG O2 Sat (Calc) 81.1 H VBG Base Excess 2.5 H VBG Potassium 4.0 Glucose 114 H Lactate 1.0 FiO2 21.0 Sodium 132 132.0 Potassium 4.1 Chloride 99 100.0 Carbon Dioxide 25 Anion Gap 12 BUN 14 Creatinine 1.0 Est GFR ( Amer) > 60 Est GFR (Non-Af Amer) > 60 Random Glucose 115 H Calcium 8.9 Total Bilirubin 0.4 AST 32 ALT 20 Alkaline Phosphatase 116 Troponin I < 0.01 NT-Pro-B Natriuret Pep 185 Total Protein 8.2 Albumin 4.0 Globulin 4.2 Albumin/Globulin Ratio 1.0 L Venous Blood Potassium 4.0 Influenza Typ A,B (EIA) Ur L.pneumophila Ag 05/23/18 05/23/18 05/24/18 16:48 16:52 06:45 WBC 6.1 RBC 4.27 Hgb 12.8 L Hct 36.8 L MCV 86.2 MCH 30.0 MCHC 34.8 RDW 12.8 Plt Count 218 MPV 8.6 Neut % (Auto) Lymph % (Auto) Iron % (Auto) Eos % (Auto) Baso % (Auto) Lymph # (Auto) Iron # (Auto) Eos # (Auto) Baso # (Auto) Absolute Neuts (auto) PT INR APTT pO2 VBG pH VBG pCO2 VBG HCO3 VBG Total CO2 VBG O2 Sat (Calc) VBG Base Excess VBG Potassium Glucose Lactate FiO2 Sodium Potassium Chloride Carbon Dioxide Anion Gap BUN Creatinine Est GFR ( Amer) Est GFR (Non-Af Amer) Random Glucose Calcium Total Bilirubin AST ALT Alkaline Phosphatase Troponin I NT-Pro-B Natriuret Pep Total Protein Albumin Globulin Albumin/Globulin Ratio Venous Blood Potassium Influenza Typ A,B (EIA) Negative for flu a/b Ur L.pneumophila Ag Negative 05/24/18 05/24/18 06:45 08:00 WBC RBC Hgb Hct MCV MCH MCHC RDW Plt Count MPV Neut % (Auto) Lymph % (Auto) Iron % (Auto) Eos % (Auto) Baso % (Auto) Lymph # (Auto) Iron # (Auto) Eos # (Auto) Baso # (Auto) Absolute Neuts (auto) PT 13.1 H INR 1.16 APTT 34.4 pO2 VBG pH VBG pCO2 VBG HCO3 VBG Total CO2 VBG O2 Sat (Calc) VBG Base Excess VBG Potassium Glucose Lactate FiO2 Sodium 133 Potassium 3.5 L Chloride 101 Carbon Dioxide 23 Anion Gap 13 BUN 9 Creatinine 0.6 L Est GFR ( Amer) > 60 Est GFR (Non-Af Amer) > 60 Random Glucose 96 Calcium 8.4 Total Bilirubin 0.5 AST 31 ALT 13 Alkaline Phosphatase 114 Troponin I NT-Pro-B Natriuret Pep Total Protein 7.9 Albumin 3.7 Globulin 4.2 Albumin/Globulin Ratio 0.9 L Venous Blood Potassium Influenza Typ A,B (EIA) Ur L.pneumophila Ag Attending/Attestation - Attestation I have personally seen and examined this patient.: Yes I have fully participated in the care of the patient.: Yes I have reviewed all pertinent clinical information: Yes Notes (Text): 05/24/18 13:35 I have seen and examined patient with GI fellow. Agree with above documentation with the following additions. In brief, this is an 87 year old male with history of advanced dementia, HTN, hyperlipidemia who presents to hospital with failure to thrive and dyspnea. Patient cannot participate in meaningful conversation, additional history obtained via chart review, discussion with nursing staff and patient family members. He apparently has been having recent decline in PO intake for the past 2 weeks, though according to patient's daughter he has been able to tolerate PO feeds with assistance. There is no report of abdominal pain, nausea, vomiting, fever/chills, weight loss. Unknown regarding prior endoscopic evaluation. Dementia HTN Hyperlipidemia Dysphagia, failure to thrive - Continue with antibiotic therapy as per pulmonary team - Awaiting formal swallow evaluation - Case discussed at length with patient's daughter who does not wish to proceed with potential endoscopic gastrostomy feeding tube at this time. Risks/benefits of possible procedure explained to her in detail and she understands. Will await results of swallow evaluation and then reassess patient goals of care at that time. - Obtain calorie count
[2018-05-24 08:27] LABS: INR 1.16; PARTIAL THROMBOPLASTIN TIME 34.4 Seconds (26.9-38.3); PROTHROMBIN TIME 13.1 SECONDS (9.4-12.5)
[2018-05-24] MEDS: SELEGILINE 5 MG PO SCH ×2 (11:00→18:09)
--- NOTE | 2018-05-24 11:15 | CON ---
DATE OF CONSULTATION: 05/24/2018 PULMONARY CONSULTATION REASON FOR PULMONARY CONSULTATION: Rule out pneumonia. REFERRING PHYSICIAN: Dr. Guillen. SOURCE OF HISTORY: History is obtained via extensive discussion with the night nurse. I have also reviewed the chart at length. The patient is not an adequate historian at this point in time. HISTORY OF PRESENT ILLNESS: The patient is an 87-year-old male, chronically ill, with advanced Alzheimer's dementia, Parkinson's disease, who presents to [facility] primarily because he is not eating at all at home. The family is requesting a feeding tube be placed. He was thus admitted for additional evaluation. Again, I did discuss the case with the night nurse at length. The patient is not short of breath at rest. The night nurse does confirm a minimal occasional cough with no sputum production. There is no history of chest pain, coughing up of blood, or chest pain - brought on with deep respirations. There is no history of temperatures, chills or infectious exposure. There is no history of night sweats. The patient has lost weight with decreased oral intake over the past few months. No history of calf pains. No history of syncope or diaphoresis. No history of recent travel or trauma. REVIEW OF SYSTEMS: No history of nausea, vomiting or diarrhea. No acute urinary symptoms. No new musculoskeletal complaints. Rest of the review of systems is negative. ALLERGIES: NO KNOWN ALLERGIES. SOCIAL HISTORY: Negative for tobacco. Negative for alcohol. FAMILY HISTORY: No inheritable diseases. HOME MEDICATIONS: Include Lipitor, Norvasc, Ativan, Flomax, Mysoline and meclizine. PHYSICAL EXAMINATION: GENERAL: The patient appears very comfortable this morning. He is not short of breath at rest. He is not using accessory muscles for breathing. VITAL SIGNS: Temperature is 98.3, pulse 91, respirations 18, blood pressure 164/90. Oxygen saturation on room air is 98%. HEENT: Normocephalic, atraumatic. NECK: No JVD. CARDIOVASCULAR: Systolic ejection murmur at the lower left sternal border. No S3 gallop. LUNGS: Decreased breath sounds at the bases. Minimal rhonchi. No wheezing. EXTREMITIES: Mild edema. No cyanosis. No clubbing. Calves are nontender to palpation. GASTROINTESTINAL: Abdomen is soft, nontender and nondistended. Bowel sounds are positive. SKIN: No acute rash. NEUROLOGIC: Exam limited at the present time. PERTINENT LABORATORY DATA: Chest x-ray was done yesterday and reviewed. There are mild chronic-appearing interstitial changes noted. The most current film is not significantly changed from the previous films. CBC: White count 7.1K, hemoglobin 13.1, hematocrit 37.5, platelets of 220,000. Complete metabolic profile: Glucose 115. Rest of the metabolic profile is within normal limits. IMPRESSION: 1. Failure to thrive. 2. Mild chronic interstitial lung disease. 3. Mild anemia. 4. Advanced dementia. PLAN: Again, I did discuss the case with the night nurse at length. I have also reviewed the chart at length. The patient is not an adequate historian. The patient is a chronically ill 87-year-old male, who presents to [facility] primarily because he is not eating at home. The family is requesting a feeding tube. As above, the night nurse does note an occasional minimal cough. There are no other pulmonary symptoms reported. I did review the chest x-ray as above. There are mild chronic interstitial changes noted. I will order a procalcitonin level - to make sure there is no underlying pneumonia. On physical exam, there is only minimal bronchospasm noted. However, there is no significant alveolar-arterial gradient. Oxygen saturation on room air is 98%. I will start the patient on DuoNeb treatments and start aspiration precautions. Neurology and Gastroenterology consultations have been ordered. The patient appears somewhat improved - compared to [facility]. However, given the above, the future status/prognosis for this patient appears poor. I will discuss the above with Dr. Guillen. Thank you very much for this pulmonary consultation. Jourdan Johnson MD BETTY
[2018-05-24] MEDS: cefTRIAXone 1 gm 1 GM/100 ML BAG IVPB SCH (13:14)
--- NOTE | 2018-05-24 14:58 | PN ---
DATE: 05/24/2018 SUBJECTIVE: He was born on last night due to failure to thrive. I have discussed this with the son the emergency room with the wanted a feeding tube placed. Now this morning, he is eating a little bit. They do want a feeding tube placed as per GI. If he is eating, and he is doing well, I will discharge him later today. MEDICATIONS: He is on IV fluids, Ativan, DuoNebs, Flomax, Lipitor, Mysoline, Norvasc, potassium replacement, Reglan, he is on Rocephin, Eldepryl, Zithromax. PHYSICAL EXAMINATION: VITAL SIGNS: Temperature 97.6, 101 pulse, 144/92 blood pressure, 19 respiratory rate, 100% O2 sat on room air. HEENT: His head is atraumatic, normocephalic. HEART: Regular rate. LUNGS: Decreased breath sounds, but clear. ABDOMEN: Soft. EXTREMITIES: No edema. LABORATORY DATA: He has a 6.1 white count, 12.8 hemoglobin, 36.8 hematocrit with a 218 platelets. He has 133 sodium, potassium 3.5, replace the potassium. BUN nine, creatinine 0.640, 60, sugar is 96,008.4, total bili is 0.5. AST is 31, ALT is 13, alk phos 114. Troponin I is less than 0.01. BNP is 185, total protein 7.9. Negative for the flu. He was seen by pulmonary, Dr. Johnson said he did not think he is by the lateral pneumonia was acute felt it was an old ANJELICA was trying to do a 50- as originally requested by family and now he is eating liquids and they refused a feeding tube that is the case. I will possibly discharge him later today. Mouth is eating again with bilateral pneumonia seems to be chronic and hopefully I like that the discharge him later this afternoon. Norris Guillen DO
--- NOTE | 2018-05-24 15:46 | CON ---
DATE: 05/24/2018 NEUROLOGY CONSULTATION CHIEF COMPLAINT: Altered mental status and failure to thrive. HISTORY OF PRESENT ILLNESS: An 87-year-old male with history of Alzheimer's type dementia, Parkinson's disease, Parkinson's type dementia, history of hypertension and dyslipidemia, came in for some shortness of breath, generalized weakness and poor p.o. intake, most likely failure to thrive. He is very cachectic looking, following simple commands, in no acute distress, very deconditioned. PAST MEDICAL HISTORY: As above. SOCIAL HISTORY: No illicit drug use, smoking, or EtOH abuse. REVIEW OF SYSTEMS: A 14-point review of systems is negative except as per HPI. MEDICATIONS: Reviewed by nurse's reconciliation sheet. PHYSICAL EXAMINATION GENERAL: The patient is cachectic looking. The patient is sitting up in bed and in no acute distress. VITAL SIGNS: Temperature is 97.6, pulse rate of 91, blood pressure 144/92, respiratory rate of 19 and oxygen saturation on room air. HEENT: Atraumatic and normocephalic. PERRLA. Extraocular muscles are intact. NECK: Supple, no JVD and no adenopathy noted. LUNGS: Clear to auscultation. No adventitious sounds. HEART: S1 and S2. Normal rate and rhythm. No murmurs, rubs or gallops. ABDOMEN: Soft, nontender, and nondistended. Bowel sounds are present. EXTREMITIES: No clubbing, no cyanosis. Peripheral pulses 2+ felt bilaterally. NEUROLOGIC: The patient is alert and oriented to person, not much to month, place and year. Very deconditioned, cachectic looking. Cranial nerves II through XII intact. Speech is hypophonic, no aphasia noted. Motor exam; moves all extremities equally. No pronator drift seen. Has atrophy of proximal and distal muscles of upper and lower extremities. Sensory: Decreased light touch and pinprick up to the calves bilaterally. Decreased vibration at the toes. DTRs are 2+ and 1 at both knees and ankles. Coordination: Gait is deferred for now. LABORATORY DATA: Sodium is 132, potassium 3.4, chloride 101, carbon dioxide 9, BUN of 9, creatinine 0.6, and random glucose 96. IMPRESSION: Deconditioned and cachectic presentation with underlying failure to thrive and superimposed underlying Alzheimer's type dementia. RECOMMENDATIONS: 1. Frequent orientation throughout the day. 2. Avoid any sedative medicines. 3. Multivitamins, thiamine, folate. 4. PT and OT and subacute rehab and long-term placement. Iam Crzu MD
[2018-05-24] MEDS: Sodium Chloride 0.45% 1,000 ML IV SCH (18:07)
[2018-05-24] MEDS ORDERED: POLYETHYLENE GLYCOL 3350 17 GM/Dose PACKET PO STA (20:46)
[2018-05-25] MEDS: Albuterol-Ipratrop 3 mg / 0.5 (3 ml) UD IH SCH ×3 (01:12→07:04)
[2018-05-25 08:35] VITALS: PULSE 95; RESP 17; TEMP 97.5; O2SAT 96
--- NOTE | 2018-05-25 09:01 | CP.PCM.PN ---
<Bea Alexis - Last Filed: 05/25/18 09:32> Subjective - Date & Time of Evaluation Date of Evaluation: 05/25/18 Time of Evaluation: 08:56 - Subjective Subjective: Gastroenterology Fellow/PGY6 Progress Note Patient resting comfortably. Patient does not respond to questioning. Nursing denies acute events overnight. Nursing notes patient mainly had liquid intake. A 12-point review of systems unable to be completed in setting of dementia. Objective - Vital Signs/Intake and Output Vital Signs (last 24 hours): Temp Pulse Resp BP Pulse Ox 97.5 F L 95 H 17 150/84 96 05/25/18 06:00 05/25/18 06:00 05/25/18 06:00 05/25/18 06:00 05/25/18 06:00 Intake and Output: 05/25/18 05/25/18 06:59 18:59 Intake Total 120 Balance 120 - Medications Medications: Current Medications Albuterol/Ipratropium (Duoneb 3 Mg/0.5 Mg (3 Ml) Ud) 3 ml [facility] [id number] [facility] Last Admin: 05/25/18 07:04 Dose: Not Given Albuterol/Ipratropium (Duoneb 3 Mg/0.5 Mg (3 Ml) Ud) 3 ml IH Q2H PRN PRN Reason: Shortness of Breath Amlodipine Besylate (Norvasc) 10 mg PO DAILY [facility] Last Admin: 05/24/18 11:01 Dose: 10 mg Atorvastatin Calcium (Lipitor) 20 mg PO DIN [facility] Last Admin: 05/24/18 18:07 Dose: 20 mg Sodium Chloride (Sodium Chloride 0.45%) 1,000 mls @ 60 mls/hr IV .[id number] [facility] Last Admin: 05/24/18 18:07 Dose: 60 mls/hr Ceftriaxone Sodium (Rocephin 1 Gram Ivpb) 1 gm in 100 mls @ 100 mls/hr IVPB DAILY [facility]; Protocol Last Admin: 05/24/18 13:14 Dose: 100 mls/hr Azithromycin (Zithromax 500mg In Ns) 500 mg in 250 mls @ 167 mls/hr IVPB DAILY [facility]; Protocol Last Admin: 05/24/18 15:23 Dose: 167 mls/hr Lorazepam (Ativan) 1 mg PO BID PRN; Protocol PRN Reason: Sleep Last Admin: 05/25/18 05:15 Dose: 1 mg Selegiline [Eldepryl (] 5 Mg (Home Med)) 5 mg PO BID [facility] Last Admin: 05/24/18 18:09 Dose: Not Given Primidone (Mysoline) 50 mg PO HS [facility] Last Admin: 05/24/18 21:36 Dose: 50 mg Tamsulosin HCl (Flomax) 0.4 mg PO DAILY [facility] Last Admin: 05/24/18 10:23 Dose: 0.4 mg - Labs Labs: 05/24/18 06:45 05/24/18 06:45 PT 13.1 SECONDS (9.4-12.5) H 05/24/18 08:00 INR 1.16 05/24/18 08:00 APTT 34.4 Seconds (26.9-38.3) 05/24/18 08:00 - Constitutional Appears: Non-toxic, No Acute Distress - Head Exam Head Exam: ATRAUMATIC, NORMOCEPHALIC - Eye Exam Eye Exam: EOMI, PERRL. absent: Scleral icterus Pupil Exam: PERRL. absent: Miosis, Mydriatic - ENT Exam ENT Exam: Mucous Membranes Moist, Normal Oropharynx - Neck Exam Neck Exam: Full ROM, Normal Inspection - Respiratory Exam Respiratory Exam: Clear to Ausculation Bilateral. absent: Rales, Rhonchi, Wheezes - Cardiovascular Exam Cardiovascular Exam: RRR, +S1, +S2. absent: Gallop, Rubs - GI/Abdominal Exam GI & Abdominal Exam: Soft, Normal Bowel Sounds. absent: Distended, Firm, Guarding, Rigid, Tenderness, Organomegaly, Rebound - Extremities Exam Extremities Exam: Normal Inspection. absent: Pedal Edema - Neurological Exam Neurological Exam: Alert, Awake - Psychiatric Exam Psychiatric exam: Normal Affect, Normal Mood - Skin Skin Exam: Dry, Intact, Normal Color, Warm Assessment and Plan - Assessment and Plan (Free Text) Assessment: 87 year old male with PMH of Parkinson's, Alzheimer's Dementia, HTN, and HLD presenting with shortnes sof breath and fatigue. Active treatment of failure to thrive. Plan: -family requests to hold off on gastrostomy tube placement on -speech therapy- moderate oropharyngeal dysphagia -puree, thin liquids, no straws, 1:1 feeding -continue calorie count -aspiration precautions -will follow clinical course <KevinNick Y - Last Filed: 05/25/18 09:38> Objective - Vital Signs/Intake and Output Vital Signs (last 24 hours): Temp Pulse Resp BP Pulse Ox 97.5 F L 95 H 17 150/84 96 05/25/18 06:00 05/25/18 06:00 05/25/18 06:00 05/25/18 06:00 05/25/18 06:00 Intake and Output: 05/25/18 05/25/18 06:59 18:59 Intake Total 120 Balance 120 - Medications Medications: Current Medications Albuterol/Ipratropium (Duoneb 3 Mg/0.5 Mg (3 Ml) Ud) 3 ml [facility] [id number] [facility] Last Admin: 05/25/18 07:04 Dose: Not Given Albuterol/Ipratropium (Duoneb 3 Mg/0.5 Mg (3 Ml) Ud) 3 ml IH Q2H PRN PRN Reason: Shortness of Breath Amlodipine Besylate (Norvasc) 10 mg PO DAILY [facility] Last Admin: 05/24/18 11:01 Dose: 10 mg Atorvastatin Calcium (Lipitor) 20 mg PO DIN [facility] Last Admin: 05/24/18 18:07 Dose: 20 mg Sodium Chloride (Sodium Chloride 0.45%) 1,000 mls @ 60 mls/hr IV .[id number] [facility] Last Admin: 05/24/18 18:07 Dose: 60 mls/hr Ceftriaxone Sodium (Rocephin 1 Gram Ivpb) 1 gm in 100 mls @ 100 mls/hr IVPB DAILY [facility]; Protocol Last Admin: 05/24/18 13:14 Dose: 100 mls/hr Azithromycin (Zithromax 500mg In Ns) 500 mg in 250 mls @ 167 mls/hr IVPB DAILY [facility]; Protocol Last Admin: 05/24/18 15:23 Dose: 167 mls/hr Lorazepam (Ativan) 1 mg PO BID PRN; Protocol PRN Reason: Sleep Last Admin: 05/25/18 05:15 Dose: 1 mg Selegiline [Eldepryl (] 5 Mg (Home Med)) 5 mg PO BID [facility] Last Admin: 05/24/18 18:09 Dose: Not Given Primidone (Mysoline) 50 mg PO HS [facility] Last Admin: 05/24/18 21:36 Dose: 50 mg Tamsulosin HCl (Flomax) 0.4 mg PO DAILY [facility] Last Admin: 05/24/18 10:23 Dose: 0.4 mg - Labs Labs: 05/25/18 09:00 05/25/18 09:00 PT 13.1 SECONDS (9.4-12.5) H 05/24/18 08:00 INR 1.16 05/24/18 08:00 APTT 34.4 Seconds (26.9-38.3) 05/24/18 08:00 Attending/Attestation - Attestation I have personally seen and examined this patient.: Yes I have fully participated in the care of the patient.: Yes I have reviewed all pertinent clinical information, including history, physical exam and plan: Yes Notes (Text): 05/25/18 09:36 I have seen and examined patient with GI fellow. No acute events overnight, there is no reported abdominal pain, nausea, vomiting, fever/chills. Dementia HTN Hyperlipidemia Pneumonia - Continue with antibiotic therapy as per pulmonary team - REHAB PHYSICIAN note reviewed, appreciated. Recommendation provided for puree consistency diet with thin liquids. - Maintain strict aspiration precautions with head of bed elevation during feeds - Monitor calorie count - Patient's family currently refusing potential endoscopic feeding tube placement, however my feeling is that patient will require placement in future given ongoing clinical deterioration. For time being, will continue to observe clinical progress. No planned GI intervention, will sign off case. Please reconsult as necessary, thank you.
[2018-05-25 09:12] LABS: HEMOGLOBIN 11.6 g/dL (14.0-18.0); MEAN CELL VOLUME 85.9 fl (80.0-105.0); MEAN CORPUSCULAR HEMOGLOBIN 29.8 pg (25.0-35.0); MEAN CORPUSCULAR HGB CONC 34.7 g/dl (31.0-37.0); MEAN PLATELET VOLUME 8.4 fl (7.0-11.0); RBC 3.89 10^6/uL (3.5-6.1); RED CELL DISTRIBUTION WIDTH 12.8 % (11.5-14.5)
[2018-05-25 09:25] LABS: ALB/GLOB RATIO 0.9 (1.1-1.8); ALBUMIN 3.6 g/dL (3.0-4.8); ALT/SGPT 13 U/L (7-56); AST/SGOT 25 U/L (17-59); BLOOD UREA NITROGEN 11 mg/dL (7-21); CALCIUM 8.6 mg/dL (8.4-10.5); GFR NON-AFRICAN AMERICAN > 60
[2018-05-25] MEDS: SELEGILINE 5 MG PO SCH (10:57)
[2018-05-25 11:06] VITALS: BP 140/80
--- NOTE | 2018-05-25 15:15 | DS ---
HISTORY OF PRESENT ILLNESS: He is going to be going to [facility] today. He is being observation level of care. The whole time he has been in the hospital. He came in with the failure to thrive kind of a picture. Family said we put a feeding tube the next day they do not want the feeding tube and find out is going to [facility] and Sunday little bit today. He will go there on Ativan, DuoNebs, Flomax, Lipitor, MiraLax, Mysoline, Norvasc, Rocephin and Zithromax. PHYSICAL EXAMINATION: VITAL SIGNS: He has a 97.5 temperature, 95 pulse, 140/80 blood pressure, 17 respiratory rate, 96% O2 sat. HEENT: Head is atraumatic, normocephalic. HEART: Regular rate. LUNGS: Decreased breath sounds, but clear. ABDOMEN: Soft. EXTREMITIES: No edema. LABORATORY DATA: He has a 6 white count, 11.6 hemoglobin, 33.4 hematocrit with 225 platelets. He has 129 sodium, potassium 3.8, BUN is 11, creatinine 0.7, GFR is greater than 60, sugar is 107, calcium is 8.6, total bili is 0.7, AST is 25, ALT is 13, alk phos 93, total protein 7.5. He had a chest x-ray that showed bilateral interstitial infiltrates. I told he is on Rocephin and Zithromax. He is not going to get a feeding tube. He is back to sort of his baseline. Some physical therapy at [facility] to be discharge her today. observation level of care. Norris Guillen DO MTDD
--- NOTE | 2018-05-25 18:26 | OP ---
PROCEDURE DATE: 05/25/2018 PULMONARY PROGRESS NOTE SUBJECTIVE: The patient remains in bed, poorly responsive. According to the RN this is unchanged. The patient is chronically ill with advanced Alzheimer's disease and Parkinson's disease. He has failure to thrive and was not eating at home. There is little history available at this time. We will discuss with primary physician, Dr. Guillen later this morning. PHYSICAL EXAMINATION: GENERAL: The patient remains in no acute respiratory distress, is breathing comfortably. He is afebrile, pulse 90, respiratory rate 18, blood pressure 160/78, O2 saturation 98% on supplemental oxygen. HEENT: Normocephalic, atraumatic. NECK: Supple. No JVD. CARDIOVASCULAR: Regular rhythm. S1, S2 without murmur, gallop or rub. CHEST: Global decrease in breath sounds with minimal rhonchi. No wheezes appreciated. ABDOMEN: Soft. Bowel sounds normoactive without mass, guarding, rebound or organomegaly. EXTREMITIES: Reveal trace edema. NEUROLOGIC: No focal findings. CLINICAL IMPRESSION: 1. Chronic interstitial lung disease versus congestive heart failure, procalcitonin was normal. No evidence of septic shock pneumonitis. 2. Advanced dementia. 3. Advanced Parkinson's disease. PLAN: Vigorous supportive care is in order, long-term care should be questioned. We will follow closely with you and make sure that the patient is as comfortable as possible. Continue current medical therapy. We will follow closely with you. Lucien Barnett MD
== END 2018-05-25 12:54 ==
LOC: ED 15:12 → INTOOBSV 16:52 → ERH 16:52 → 5RNO 21:02 → INTOOBSV 05-25 08:19 → OBSVTOIN 05-25 08:19
PROVIDERS: ADMIT Family Medicine; ATTEND Family Medicine
DX: R62.7 Adult failure to thrive (principal); R64 Cachexia; D64.9 Anemia, unspecified; E11.9 Type 2 diabetes mellitus without complications; E78.5 Hyperlipidemia, unspecified; G30.9 Alzheimer's disease, unspecified; F02.80 Dementia in other diseases classified elsewhere, unspecified severity, without behavioral disturbance, psychotic disturbance, mood disturbance, and anxiety; G20 Parkinson's disease; H91.90 Unspecified hearing loss, unspecified ear; I10 Essential (primary) hypertension; J18.9 Pneumonia, unspecified organism; N40.0 Benign prostatic hyperplasia without lower urinary tract symptoms; R13.10 Dysphagia, unspecified; Z87.891 Personal history of nicotine dependence; R13.12 Dysphagia, oropharyngeal phase; R51 Headache; Z87.09 Personal history of other diseases of the respiratory system
CPT/HCPCS: 36415; 71045; 80053; 82803; 83880; 84145; 84484; 85025; 85027; 85610; 85730; 87040; 87449; 87804; 92610; 93005; 94640; 94760; 96361; 96365; 96374; 96375; 97161; 97530; 99285; G0378; G8978; G8979; G8996; G8997; J0456; J0696; J2765; J3480; J7030